=== PATIENT | female | born 1950 | race Caucasian/White ===

== ENCOUNTER 2021-10-13 09:24 | Inpatient (IN) ==
[2021-10-13] MEDS ORDERED: 0.9 % SODIUM CHLORIDE 1,000 ML IV ONE ×2 (09:31→10:35)
--- NOTE | 2021-10-13 09:35 | Emergency Department Note ---
SOB HPI General Chief Complaint: Shortness of Breath/Dyspnea Stated Complaint: SOB Time Seen by Provider: 10/13/21 09:30 Mode of arrival: ambulatory History of Present Illness HPI Narrative: Patient is a 71-year-old lady who arrives emergency state. Patient has been feeling short of breath for the past several days. This was gradual in onset has been progressively worsening. She has had a cough as well as a headache associated with her symptoms. She denies any fever or chills. Family members noticed that she was looking more short of breath this morning so they called 911. Paramedics arrived to find the patient in significant respiratory distress with oxygen saturation in the 70s on room air provide CPAP the patient's work of breathing and oxygen saturation greatly improved. Related Data Home Medications Medication Instructions Recorded Confirmed diazepam 5 mg tablet 5 mg PO BID 10/13/21 10/13/21 mirabegron 50 mg tablet,extended 50 mg PO QDAY 10/13/21 10/13/21 release 24 hr (Myrbetriq) olanzapine 5 mg tablet 5 mg PO QHS 10/13/21 10/13/21 quetiapine 300 mg tablet 300 mg PO QHS 10/13/21 10/13/21 sertraline 100 mg tablet 150 mg PO QDAY 10/13/21 10/13/21 Previous Rx's Medication Instructions Recorded amlodipine 5 mg tablet 5 mg PO QDAY #90 tab 07/27/21 celecoxib 100 mg capsule (Celebrex) 100 mg PO BID #180 cap 09/24/21 lamotrigine 100 mg tablet 200 mg PO QHS #180 tab 09/24/21 buprenorphine HCl 8 mg sublingual 8 mg SUBLINGUAL BID #60 tab 10/09/21 tablet Allergies Allergy/AdvReac Type Severity Reaction Status Date / Time albuterol Allergy Severe Swelling Verified 09/28/21 13:24 Penicillins Allergy Severe Vomiting, Verified 09/28/21 13:24 swelling codeine Allergy Intermediate Itching Verified 09/28/21 13:24 ibuprofen [From Motrin] Allergy Intermediate relaxes Verified 09/28/21 13:24 bladder (incontinence) Review of Systems ROS ROS Narrative: Narrative: Limitations: ROS unobtainable due to patients medical condition (Medical urgency) [facility] Narrative Patient History Narrative: Narrative: Medical/Surgical/Family History All Active Problems (Updated 10/13/21 @ 11:34 by Gilmar Montoya DO) Franco catheter problem (Acute) COVID-19 (Acute) Acute hypoxemic respiratory failure (Acute) Dysuria (Acute) Urinary frequency (Acute) Opioid dependence, in remission (Chronic) Encounter for monitoring of patient compliance in drug treatment program (Chronic) Fibromyalgia (Acute) COPD (chronic obstructive pulmonary disease) (Acute) Anxiety (Acute) Depression (Acute) High blood pressure (Acute) Arthritis (Acute) Migraines (Acute) Osteoporosis (Acute) GERD (gastroesophageal reflux disease) (Acute) Dementia (Acute ~2013) Tourettes disease (Acute 1950) Asthma (Chronic) Muscle pain (Chronic) Joint pain (Chronic) Kidney stones (Chronic) Stomach ulcer (Chronic) Status post surgery (Chronic) History of surgery (Chronic) History of colonoscopy (Chronic) Chronic suprapubic catheter (Acute) Anemia (Acute) Fatigue (Acute) Chest pain at rest (Acute) Pressure ulcer (Acute) Pressure ulcer of right hip (Acute) Worsening headaches (Acute) Nail thickening (Acute) Lymphadenopathy, cervical (Acute) Thoracic back pain (Acute) Urinary tract infection with hematuria (Acute) Urinary catheter in place (Acute) Medical History Anxiety Arthritis Asthma Brain aneurysm (~2010) COPD (chronic obstructive pulmonary disease) Dementia (~2013) Depression Fibromyalgia GERD (gastroesophageal reflux disease) Gout High blood pressure History of alcohol abuse (~1979) History of kidney stones Joint pain Kidney stones Migraines Muscle pain Open wound of right thigh Osteoporosis Pressure ulcer of right hip Stomach ulcer Tourettes disease (1950) Surgical History History of colonoscopy History of surgery preventive aneurysm surgery Status post surgery pubic catheter placement Family History Mother Family history of lung cancer Family history of arthritis Family history of high blood pressure Father Family history of arthritis Family history of high blood pressure Family history of heart attack Family/Other Family history of migraine headaches "all" Social History Smoking Status: Former smoker Alcohol Intake Frequency: former alcohol drinker Substance Use: former substance user Exam Narrative Narrative: I reviewed the vital signs. Gen -patient is awake and alert and in no acute distress. She appears older than her stated age. HEENT -head is atraumatic. There is no conjunctival pallor or scleral icterus. Mucous membranes are dry CV -S1-S2 regular rate and rhythm. Peripheral pulses are palpable. There is no JVD. Resp -breathing is slightly labored with tachypnea and some conversational dyspnea while on CPAP. Lungs have coarse rhonchi bilaterally. There is no cyanosis. GI - Abdomen is soft and nontender to palpation. There is no guarding or rebound tenderness. Derm -skin is warm and dry. There is no visible rash. MSK -present extremities are atraumatic. Psych -patient has appropriate affect. The patient does not appear internally stimulated. Neuro -patient provides brief but generally appropriate answers to questions. Patient moves all present extremities equally. Course Vital Signs Vital signs: Vital Signs Pulse Rate 97 H 10/13/21 09:34 Respiratory Rate 24 H 10/13/21 09:34 Blood Pressure 133/97 10/13/21 09:34 Pulse Oximetry (%) 98 10/13/21 09:34 Pulse Rate 83 10/13/21 10:50 Respiratory Rate 28 H 10/13/21 10:50 Blood Pressure 118/78 10/13/21 10:50 Pulse Oximetry (%) 98 10/13/21 10:50 [facility] MDM Narrative Medical decision making narrative: Patient presents significantly ill with tachypnea and increased work of breath ing despite CPAP. Rapid COVID-19 test is positive and chest x-ray appears consistent with Covid pneumonia. Given this I do not think she would benefit from antibiotic treatment. We initiated treatment with IV Decadron. I discussed her critical illness and poor prognosis with her brother Klaus at [phone]. He is her medical power of state's attorney. He says she would not want CPR if she were to experience a cardiac arrest. He is uncertain if she would want intubation if her respiratory status continues to worsen. He will discuss this with other family members to try to decide what the patient would want. For the time being intubation will remain a treatment option. After discussing the situation with the patient's daughter, patient's brother called back and told me that he does not think the patient would want to be intubated at this time. I discussed the patient's history examination and diagnostic findings with Dr. Deleon, who agrees with the plan of care and accepts admission. Critical care time I provided 36 minutes of critical care time. This was in addition to any separately billable procedures. The patient was given supplemental oxygen to treat her hypoxemic respiratory failure. She was given dexamethasone to treat the causative COVID-19 pneumonia. I discussed her wishes for aggressive medical interventions with family members as she is unable to do so at this time given her dementia significantly increased work of breathing. The patient was closely monitored for response to treatment and stability of vital signs throughout their emergency department stay. Lab Data Result diagrams: 10/13/21 09:32 10/13/21 09:32 Labs: Lab Results 10/13/21 10/13/21 10/13/21 Range/Units 09:32 09:32 09:32 WBC 11.2 H (4.5-11.0) K/mcL RBC 4.51 (3.59-5.38) M/mcL Hgb 12.1 (11.2-15.7) g/dL Hct 37.6 (34.1-44.9) % MCV 83.4 (80.0-100.0) fL MCH 26.8 (26.0-34.0) pg MCHC 32.2 (31.0-36.0) g/dL RDW 16.5 H (11.5-14.5) % Plt Count 239 (140-440) K/mcL MPV 9.9 (7.4-10.4) fL Neut % (Auto) 76.0 (38.0-78.0) % Lymph % (Auto) 10.7 L (15.5-49.0) % [place] % (Auto) 13.1 H (1.0-12.0) % Eos % (Auto) 0 (0.0-7.0) % Baso % (Auto) 0.2 (0.0-2.0) % Lymph # (Auto) 1.20 L (1.50-4.80) K/mcL [place] # (Auto) 1.47 H (0.10-0.90) K/mcL Eos # (Auto) 0 (0.00-0.70) K/mcL Baso # (Auto) 0.02 (0.00-0.30) K/mcL Absolute Neutrophils 8.50 H (1.80-8.00) K/mcL Sodium 141 (133-145) mmol/L Potassium 3.5 (3.3-5.1) mmol/L Chloride 104 (96-108) mmol/L Carbon Dioxide 20 L (22-30) mmol/L Anion Gap 17.0 H (8.0-16.0) BUN 26 H (8-23) mg/dL Creatinine 1.1 (0.6-1.1) mg/dL GFR Calculation 51 Glucose 104 (70-105) mg/dL Calcium 8.1 L (8.6-10.4) mg/dL Total Bilirubin 0.3 (0.1-1.0) mg/dL AST 65 H (<32) U/L ALT 19 (<40) U/L Alkaline Phosphatase 187 H (39-117) U/L Troponin T < 0.01 (<0.03) ng/mL NT-Pro-B Natriuret Pep 1452.0 H (<125.0) pg/mL Total Protein 6.6 (5.9-8.4) gm/dL Albumin 3.0 L (3.2-5.2) gm/dL Globulin 3.6 (2.2-3.7) gm/dL Albumin/Globulin Ratio 0.8 L (1.0-2.3) ED POC Tests ED POC Tests: LENKA - Influenza A Negative LENKA - Influenza B Negative LENKA - SARS Antigen Positive Discharge Plan Patient/Caregiver Discharge Instructions Pt seen by JOURNALISM PROFESSOR/PA only: No Clinical Impression: COVID-19, Acute hypoxemic respiratory failure Patient Disposition: Xfer As Inpt ([facility]) Condition: Critical Follow up with: Antonia Velazquez ARNP [Primary Care Provider] - Prescriptions: No Action amlodipine 5 mg tablet 5 mg PO QDAY Qty: 90 1RF lamotrigine 100 mg tablet 200 mg PO QHS Qty: 180 1RF celecoxib [Celebrex] 100 mg capsule 100 mg PO BID Qty: 180 1RF buprenorphine HCl 8 mg tablet, sublingual 8 mg SUBLINGUAL BID Qty: 60 0RF quetiapine 300 mg tablet 300 mg PO QHS 0RF Rx Instructions: TAKE 1 TABLET BY MOUTH ONCE DAILY AT BEDTIME sertraline 100 mg tablet 150 mg PO QDAY 0RF Rx Instructions: TAKE 1 & 1/2 (ONE & ONE-HALF) TABLETS BY MOUTH ONCE DAILY olanzapine 5 mg tablet 5 mg PO QHS 0RF Rx Instructions: TAKE 1 TABLET BY MOUTH ONCE DAILY AT BEDTIME diazepam 5 mg tablet 5 mg PO BID 0RF Rx Instructions: Takes 2 in the AM and 1 at HS Myrbetriq 50 mg tablet extended release 24 hr 50 mg PO QDAY 0RF Rx Instructions: Take 1 tablet by mouth once daily
--- NOTE | 2021-10-13 09:52 | XRay Report ---
INDICATION: dyspnea TECHNIQUE: AP portable semiupright chest x-ray COMPARISON: Previous chest x-rays dated 01/09/2021, 07/16/2020 FINDINGS: Lungs:Bilateral pulmonary parenchymal infiltrates, right worse than left. No parenchymal consolidation or mass. Findings are new since previous examination. Findings are most consistent with pneumonia. Covid pneumonia is not excluded appropriate clinical circumstances. Follow-up radiographs recommended. Heart, vascular:No significant cardiomegaly. Pulmonary vascularity is normal. No pulmonary edema or pulmonary congestion Mediastinum, claudia:No mediastinal widening. No hilar mass Pleura:No pleural fluid. No pleural-based mass or calcification Skeletal:Negative. IMPRESSION: 1. Pulmonary parenchymal infiltrates, right worse than left 2. Findings consistent with pneumonia. Follow-up radiographs recommended Interpreted and Authenticated by: Jasen Scott 10/13/21
[2021-10-13] MEDS ORDERED: DEXAMETHASONE 10 MG/ML VIAL IV ONE (10:07)
[2021-10-13 10:36] LABS: Basophils # (Auto) 0.02 K/mcL (0.00-0.30); Basophils % (Auto) 0.2 % (0.0-2.0); Eosinophils # (Auto) 0 K/mcL (0.00-0.70); Eosinophils % (Auto) 0 % (0.0-7.0); Hematocrit 37.6 % (34.1-44.9); Hemoglobin 12.1 g/dL (11.2-15.7); Lymphocytes % (Auto) 10.7 % (15.5-49.0); Mean Cell Volume 83.4 fL (80.0-100.0); Mean Corpuscular HGB Conc 32.2 g/dL (31.0-36.0); Mean Platelet Volume 9.9 fL (7.4-10.4); Monocytes # (Auto) 1.47 K/mcL (0.10-0.90); Monocytes % (Auto) 13.1 % (1.0-12.0); Platelet Count 239 K/mcL (140-440); RBC 4.51 M/mcL (3.59-5.38); Red Cell Distribution Width 16.5 % (11.5-14.5); WBC 11.2 K/mcL (4.5-11.0)
[2021-10-13 11:01] LABS: ALT/SGPT 19 U/L (<40); AST/SGOT 65 U/L (<32); Albumin/Globulin Ratio 0.8 (1.0-2.3); Alkaline Phosphatase 187 U/L (39-117); Bilirubin,Total 0.3 mg/dL (0.1-1.0); Blood Urea Nitrogen 26 mg/dL (8-23); Calcium 8.1 mg/dL (8.6-10.4); Carbon Dioxide 20 mmol/L (22-30); Chloride 104 mmol/L (96-108); Globulin 3.6 gm/dL (2.2-3.7); Glomerular Filtration Rate 51; Glucose 104 mg/dL (70-105)
[2021-10-13] MEDS ORDERED: SENNOSIDES 1 TABLET PO PRN (11:53)
[2021-10-13] MEDS ORDERED: ACETAMINOPHEN 325 MG TABLET PO PRN (11:53)
[2021-10-13] MEDS ORDERED: LACTULOSE 20 GM/30 ML ORAL.SOL PO PRN (11:53)
[2021-10-13] MEDS ORDERED: ONDANSETRON 4 MG/2 ML VIAL IV PRN (11:53)
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
[2021-10-13] MEDS ORDERED: ACETAMINOPHEN 500 MG TABLET PO ONE (12:11)
--- NOTE | 2021-10-13 12:53 | EKG ---
[facility] Test Date: 2021-10-13 Pat Name: Catherine Rojas Department: ED Room: Gender: Female [place] [place]: SB : 1950 Requested By: Gilmar Montoya Order Number: [id number] Reading MD: Janelle Nicole D.O. Measurements Intervals [place] Rate: 90 P: 63 MO: 109 QRS: 9 QRSD: 90 T: 56 QT: 356 QTc: 436 Interpretive Statements Sinus rhythm Short MO interval Electronically Signed On 10-13-2021 12:52:39 PST by Janelle Nicole D.O. /store/M0/[id number]
[2021-10-13] MEDS ORDERED: ACETAMINOPHEN 1,000 MG/100 ML BAG IV ONE (13:25)
[2021-10-13] MEDS: 0.9 % SODIUM CHLORIDE 10 ML SYRINGE IV SCH ×2 (14:28→21:06)
[2021-10-13] MEDS: LEVALBUTEROL 1.25 MG/3 ML AMPUL.NEB NEB SCH ×2 (14:41→19:41)
[2021-10-13] MEDS ORDERED: REMDESIVIR 200 MG in 0.9 % SODIUM CHLORIDE 250 ML IV ONE (15:00)
[2021-10-13 16:38] LABS: ABG Methemoglobin 0.3 % (0.4-1.5); Total Hemoglobin 10.5 gm/Dl (12.0-15.0); VBG Base Excess -3 (-2-3); VBG HCO3 22.6 mmol/L (24.0-28.0); VBG Oxygen Saturation 94.1 % (40.0-70.0); VBG PCO2 43.9 mmHg (41.0-51.0); VBG PH 7.33 U (7.32-7.42); VBG PO2 161.4 mmHg (25.0-40.0); VBG Total CO2 23.9 mmol/L (25.0-29.0)
[2021-10-13 17:15] LABS: ALT/SGPT 18 U/L (<40); AST/SGOT 63 U/L (<32); Albumin 2.5 gm/dL (3.2-5.2); Albumin/Globulin Ratio 0.8 (1.0-2.3); Alkaline Phosphatase 156 U/L (39-117); Bilirubin,Direct 0.2 mg/dL (<0.3); Bilirubin,Total 0.3 mg/dL (0.1-1.0); Blood Urea Nitrogen 24 mg/dL (8-23); Calcium 7.2 mg/dL (8.6-10.4); Carbon Dioxide 20 mmol/L (22-30); Chloride 108 mmol/L (96-108); Globulin 3.2 gm/dL (2.2-3.7); Glomerular Filtration Rate 57; Glucose 129 mg/dL (70-105); Lactate Dehydrogenase 361 U/L (135-225); Phosphorous 4.3 mg/dL (2.5-4.5); Triglycerides 117 mg/dL (<150); Uric Acid 5.8 mg/dL (2.5-8.0)
[2021-10-13] MEDS ORDERED: QUEtiapine 100 MG TABLET PO SCH (21:00)
[2021-10-13] MEDS ORDERED: OLANZapine 5 MG TABLET PO SCH (21:00)
[2021-10-13] MEDS: lamoTRIgine 100 MG TABLET PO SCH (21:06)
[2021-10-13] MEDS: BUPRENORPHINE HCL 2 MG TAB.SUBL SL SCH (21:06)
[2021-10-13] MEDS: DOCUSATE SODIUM 100 MG CAPSULE PO SCH (21:06)
[2021-10-13] MEDS: DIAZEPAM 5 MG TABLET PO SCH (21:06)
[2021-10-14] MEDS: LEVALBUTEROL 1.25 MG/3 ML AMPUL.NEB NEB SCH ×4 (00:54→19:14)
[2021-10-14] MEDS: 0.9 % SODIUM CHLORIDE 10 ML SYRINGE IV SCH ×3 (05:30→20:19)
[2021-10-14 06:53] LABS: Hematocrit 35.9 % (34.1-44.9); Mean Corpuscular HGB Conc 30.6 g/dL (31.0-36.0); Mean Platelet Volume 10.4 fL (7.4-10.4); Platelet Count 242 K/mcL (140-440); RBC 4.08 M/mcL (3.59-5.38); WBC 15.7 K/mcL (4.5-11.0)
[2021-10-14 07:17] LABS: ALT/SGPT 17 U/L (<40); AST/SGOT 62 U/L (<32); Albumin 2.3 gm/dL (3.2-5.2); Albumin/Globulin Ratio 0.7 (1.0-2.3); Alkaline Phosphatase 140 U/L (39-117); Bilirubin,Direct < 0.2 mg/dL (0-0.3); Bilirubin,Total 0.3 mg/dL (0.1-1.0); Blood Urea Nitrogen 23 mg/dL (8-23); Calcium 7.9 mg/dL (8.6-10.4); Carbon Dioxide 20 mmol/L (22-30); Chloride 112 mmol/L (96-108); Globulin 3.4 gm/dL (2.2-3.7); Glomerular Filtration Rate 74; Glucose 110 mg/dL (70-105); Lactate Dehydrogenase 380 U/L (135-225); Phosphorous 3.1 mg/dL (2.5-4.5); Triglycerides 95 mg/dL (<150); Uric Acid 5.7 mg/dL (2.5-8.0)
[2021-10-14 08:07] LABS: Anisocytosis 2+ (None Seen); Band Neutrophils % 10 % (0-10); Lymphocytes % 4 % (15-49); Monocytes % (Manual) 7 % (1-12); Ovalocytes OCC (None Seen); Platelet Estimate NORMAL (Normal); RBC Morphology ABNORMAL (Normal); Reactive Lymphocytes 1 % (0-2); Segmented Neutrophils % 78 % (38-78)
[2021-10-14] MEDS: DOCUSATE SODIUM 100 MG CAPSULE PO SCH ×2 (09:06→20:24)
[2021-10-14] MEDS: ENOXAPARIN 40 MG/0.4 ML SYRINGE SQ SCH (09:13)
[2021-10-14] MEDS: DEXAMETHASONE 10 MG/ML VIAL IV SCH (09:13)
[2021-10-14] MEDS ORDERED: DIAZEPAM 2 MG TABLET PO PRN (11:15)
[2021-10-14] MEDS: DIAZEPAM 5 MG TABLET PO SCH (11:27)
[2021-10-14] MEDS: BUPRENORPHINE HCL 2 MG TAB.SUBL SL SCH ×3 (12:08→20:23)
[2021-10-14] MEDS: SERTRALINE 100 MG TABLET PO SCH ×2 (12:08→12:43)
[2021-10-14] MEDS: CEFEPIME 2 GM VIAL IV SCH ×2 (12:09→20:23)
[2021-10-14] MEDS: REMDESIVIR 100 MG in 0.9 % SODIUM CHLORIDE 250 ML IV SCH (12:09)
[2021-10-14 13:28] LABS: Appearance,Urine Cloudy (Clear); Bacteria,Urine MANY /hpf (0); Bilirubin,Urine Small mg/dL (Negative); Color,Urine Amber; Culture Indicated,Urine yes; Glucose,Urine (UA) Negative (Negative); Ketones,Urine 40 mg/dL mg/dL (Negative); Leukocyte Esterase,Urine Large /uL (Negative); Mucus,Urine FEW /hpf; Nitrate,Urine Positive (Negative); PH,Urine 7.5 (5.0-9.0); Protein,Urine >=300 mg/dL mg/dL (Negative); Urine Blood Large ery/mcL (Negative); Urine RBC > 182 /hpf (0-1); Urine Squamous Epithelial Cell 0 /hpf (0-4); Urine Transitional Epi Cells 6 /hpf (0-2); Urine WBC > 182 /hpf (0-4); Urobilinogen,Urine Normal
[2021-10-14] MEDS: DEXTROSE 5% IN WATER 1,000 ML IV SCH (13:51)
--- NOTE | 2021-10-14 15:04 | Internal Med Progress Note ---
SUBJECTIVE Subjective Patient information: Note initiated : 10/14/21 at 2:57 pm Service Date, if different from initiated Date: [] Patient: Catherine Rojas 71 y/o F admitted on 10/13/21 for Shortness of breath. Chief Complaint: [] Principal diagnosis: Severe COVID Interval history: Ms. Rojas is a 71 year old female with a history of COPD, chronic hypoxia with a 2 L/min oxygen requirement, suprapubic Franco catheter, dementia who presented to the emergency department for shortness of breath and acute on chronic hypoxia. The patient was diagnosed with Covid pneumonia in the emergency department.She was started on BiPAP with additional oxygen supplementation and given a dose of Decadron IV. The emergency department provider discussed goals of care with family, family decided on a CODE STATUS of DNR/DNI. Hospital medicine was asked to admit the patient for further management. Patient is unable to provide a history secondary to dementia. In the emergency department, the patient to be breathing comfortably on BiPAP. Review of systems: Unable to obtain due to dementia Physical exam Head: Atraumatic, normal inspection. Eyes: normal appearance, no scleral icterus. Neck: full ROM Respiratory: On BiPAP, respiratory rate in the mid to upper 20s. Cardiovascular: normal rate and rhythm, S1, S2. GI/Abdominal: soft, nontender, no guarding. : Suprapubic catheter present Extremities: full range of motion, nontender. Neurological: CN II-XII intact, intact motor, intact sensation. Psychiatric: normal mood, impaired cognition Skin: warm, normal color Constitutional Vitals: Vital Signs Temp Pulse Resp BP Pulse Ox 99.6 F H 87 22 117/79 92 10/14/21 12:01 10/14/21 13:22 10/14/21 14:03 10/14/21 14:01 10/14/21 14:03 Period Temp Pulse Resp BP Sys/Galarza Pulse Ox Last 24 Hr 97.9 F-100.6 F 66-114 15-34 88-124/64-79 89-96 Intake and Output 10/14/21 10/14/21 10/14/21 05:59 13:59 21:59 Intake Total 460 250 Output Total 300 400 Balance 160 -150 Intake & Output: Intake & Output 10/14/21 10/14/21 10/14/21 05:59 13:59 21:59 Intake Total 460 250 Output Total 300 400 Balance 160 -150 Intake: IV 250 Veklury 100 mg In Sodium 250 Chloride 0.9% 250 ml @ 500 mls/ hr IV Q24H [facility] Rx#:[id number] Oral 460 Output: Urine Catheter Amount 300 400 Other: Urine Appearance Cloudy Mucous Threads Sediment Suprapubic Cloudy Urine Color Dark Yellow Dark Yellow Suprapubic Dark Yellow Urine Odor Strong Foul Suprapubic Foul OBJ DATA Labs CBC & Chem 7: 10/14/21 05:28 10/14/21 05:27 Labs: Abnormal Lab Results 10/14/21 10/14/21 10/14/21 12:40 09:16 09:16 WBC Hgb MCHC RDW Lymph % (Auto) [place] % (Auto) Lymph # (Auto) [place] # (Auto) Lymphocytes % Absolute Neutrophils RBC Morphology Anisocytosis Ovalocytes D-Dimer ABG Methemoglobin VBG pO2 VBG HCO3 VBG Total CO2 VBG O2 Saturation VBG Base Excess Carboxyhemoglobin Total Hemoglobin Sodium Chloride Carbon Dioxide Anion Gap BUN Glucose Calcium GGT AST Alkaline Phosphatase Lactate Dehydrogenase C-Reactive Protein 29.70 H NT-Pro-B Natriuret Pep Total Protein Albumin Albumin/Globulin Ratio Procalcitonin 1.07 H Urine Appearance Cloudy A Urine Protein >=300 mg/dl A Urine Ketones 40 mg/dl A Urine Occult Blood Large A Urine Nitrate Positive A Urine Bilirubin Small A Ur Leukocyte Esterase Large A Urine RBC > 182 H Urine WBC > 182 H Ur Transition Epith Cell 6 H Urine Bacteria Many A Urine Mucus Few A 10/14/21 10/14/21 10/13/21 05:28 05:27 16:07 WBC 15.7 H Hgb 11.0 L MCHC 30.6 L RDW 17.0 H Lymph % (Auto) [place] % (Auto) Lymph # (Auto) [place] # (Auto) Lymphocytes % 4 L Absolute Neutrophils RBC Morphology Abnormal A Anisocytosis 2+ A Ovalocytes Occ A D-Dimer ABG Methemoglobin 0.3 L VBG pO2 161.4 H VBG HCO3 22.6 L VBG Total CO2 23.9 L VBG O2 Saturation 94.1 H VBG Base Excess -3 L Carboxyhemoglobin 4.7 H Total Hemoglobin 10.5 L Sodium 147 H Chloride 112 H Carbon Dioxide 20 L Anion Gap BUN Glucose 110 H Calcium 7.9 L GGT 58 H AST 62 H Alkaline Phosphatase 140 H Lactate Dehydrogenase 380 H C-Reactive Protein NT-Pro-B Natriuret Pep Total Protein 5.7 L Albumin 2.3 L Albumin/Globulin Ratio 0.7 L Procalcitonin Urine Appearance Urine Protein Urine Ketones Urine Occult Blood Urine Nitrate Urine Bilirubin Ur Leukocyte Esterase Urine RBC Urine WBC Ur Transition Epith Cell Urine Bacteria Urine Mucus 10/13/21 10/13/21 10/13/21 09:32 09:32 09:32 WBC Hgb MCHC RDW Lymph % (Auto) [place] % (Auto) Lymph # (Auto) [place] # (Auto) Lymphocytes % Absolute Neutrophils RBC Morphology Anisocytosis Ovalocytes D-Dimer 1.48 H ABG Methemoglobin VBG pO2 VBG HCO3 VBG Total CO2 VBG O2 Saturation VBG Base Excess Carboxyhemoglobin Total Hemoglobin Sodium Chloride Carbon Dioxide 20 L Anion Gap BUN 24 H Glucose 129 H Calcium 7.2 L GGT 56 H AST 63 H Alkaline Phosphatase 156 H Lactate Dehydrogenase 361 H C-Reactive Protein 23.00 H NT-Pro-B Natriuret Pep Total Protein 5.7 L Albumin 2.5 L Albumin/Globulin Ratio 0.8 L Procalcitonin Urine Appearance Urine Protein Urine Ketones Urine Occult Blood Urine Nitrate Urine Bilirubin Ur Leukocyte Esterase Urine RBC Urine WBC Ur Transition Epith Cell Urine Bacteria Urine Mucus 10/13/21 10/13/21 09:32 09:32 WBC 11.2 H Hgb MCHC RDW 16.5 H Lymph % (Auto) 10.7 L [place] % (Auto) 13.1 H Lymph # (Auto) 1.20 L [place] # (Auto) 1.47 H Lymphocytes % Absolute Neutrophils 8.50 H RBC Morphology Anisocytosis Ovalocytes D-Dimer ABG Methemoglobin VBG pO2 VBG HCO3 VBG Total CO2 VBG O2 Saturation VBG Base Excess Carboxyhemoglobin Total Hemoglobin Sodium Chloride Carbon Dioxide 20 L Anion Gap 17.0 H BUN 26 H Glucose Calcium 8.1 L GGT AST 65 H Alkaline Phosphatase 187 H Lactate Dehydrogenase C-Reactive Protein NT-Pro-B Natriuret Pep 1452.0 H Total Protein Albumin 3.0 L Albumin/Globulin Ratio 0.8 L Procalcitonin Urine Appearance Urine Protein Urine Ketones Urine Occult Blood Urine Nitrate Urine Bilirubin Ur Leukocyte Esterase Urine RBC Urine WBC Ur Transition Epith Cell Urine Bacteria Urine Mucus Meds: Medications Acetaminophen (Acetaminophen 325 Mg Tablet) 650 mg PO Q6HP PRN; Protocol PRN Reason: Per Pain Protocol/Fever > 101 Buprenorphine HCl (Buprenorphine Hcl 2 Mg Tab.Subl) 8 mg SL BID [facility] Last Admin: 10/14/21 12:43 Dose: Not Given Documented by: Cefepime HCl (Cefepime 2 Gm Vial) 2 gm IV Q12H [facility]; Protocol Last Admin: 10/14/21 12:09 Dose: 2 gm Documented by: Dexamethasone (Dexamethasone 10 Mg/Ml Vial) 6 mg IV DAILY [facility] Stop: 10/23/21 09:01 Last Admin: 10/14/21 09:13 Dose: 6 mg Documented by: Diazepam (Diazepam 2 Mg Tablet) 2 mg PO BIDP PRN PRN Reason: Anxiety Docusate Sodium (Docusate Sodium 100 Mg Capsule) 100 mg PO BID [facility] Last Admin: 10/14/21 09:06 Dose: Not Given Documented by: Enoxaparin Sodium (Enoxaparin 40 Mg/0.4 Ml Syringe) 40 mg SQ DAILY [facility] Last Admin: 10/14/21 09:13 Dose: 40 mg Documented by: REMDESIVIR 100 mg/ Sodium (Chloride) 250 mls @ 500 mls/hr IV Q24H [facility] Stop: 10/17/21 12:29 Last Infusion: 10/14/21 12:57 Dose: Infused Documented by: Dextrose (Dextrose 5% In Water) 1,000 mls @ 100 mls/hr IV .Q10H [facility] Last Admin: 10/14/21 13:51 Dose: 100 mls/hr Documented by: Lactulose (Lactulose 20 Gm/30 Ml Oral.Opal) 10 gm PO DAILYP PRN PRN Reason: Constipation Lamotrigine (Lamotrigine 100 Mg Tablet) 200 mg PO QHS [facility] Last Admin: 10/13/21 21:06 Dose: 200 mg Documented by: Levalbuterol HCl (Levalbuterol 1.25 Mg/3 Ml Ampul.Neb) 1.25 mg NEB Q6HRT [facility] Last Admin: 10/14/21 13:22 Dose: 1.25 mg Documented by: Olanzapine (Olanzapine 5 Mg Tablet) 5 mg PO HSP PRN PRN Reason: Agitation Ondansetron HCl (Ondansetron 4 Mg/2 Ml Vial) 4 mg IV Q4HP PRN; Protocol PRN Reason: Nausea And Vomiting Mirabegron [ Myrbetriq] 50 Mg Er Tablet 1 dose PO QDAY [facility] Last Admin: 10/14/21 12:01 Dose: Not Given Documented by: Quetiapine Fumarate (Quetiapine 100 Mg Tablet) 100 mg PO QHS [facility] Senna (Sennosides 1 Tablet) 2 tab PO HSP PRN PRN Reason: Constipation Sertraline HCl (Sertraline 100 Mg Tablet) 150 mg PO QDAY [facility] Last Admin: 10/14/21 12:43 Dose: Not Given Documented by: Sodium Chloride (0.9 % Sodium Chloride 10 Ml Syringe) 10 ml IV Q8 [facility] Last Admin: 10/14/21 13:52 Dose: 10 ml Documented by: ABG Interpretation ABG results: 10/13/21 16:07 ABG Methemoglobin 0.3 L VBG pH 7.33 VBG pCO2 43.9 VBG pO2 161.4 H VBG HCO3 22.6 L VBG Total CO2 23.9 L VBG O2 Saturation 94.1 H VBG Base Excess -3 L A/P Narrative A/P Narrative: Assessment: 71 year old female with a history of COPD, chronic hypoxia with a 2 L/min oxygen requirement, suprapubic Franco catheter, dementia admitted for acute on chronic hypoxia secondary to severe COVID. #Acute on chronic hypoxic respiratory failure #Severe COVID illness #Possible CAP #Elevated procalcitonin #Hypernatremia #Dysphagia #COPD #Essential hypertension #Depression #History of opioid use disorder #Pressure ulcers, present on admission #Suprapubic Franco catheter #Dementia #Guarded prognosis Plan -Dexamethasone and remdesivir. -Oxygen supplementation. -Start empiric Cefepime and Azithromycin. -Urinalysis w/ reflex. -D5 IV for hypernatremia. -Monitor sodium, daily CBC and chemistry panel. -Scheduled Xopenex for now. -Modified home psychotropic medications at lower doses or prn. -Delirium bundle. -PT consult -Speech consult. -NPO except meds. -DVT prophylaxis: Lovenox -CODE STATUS: DNR/DNI -Disposition: TBD Time Spent With Patient Time: Total time spent is greater than 50% in coordination of care (as documented) at patient's floor/unit and/or counseling patient: QUALITY VTE Deep Vein Thrombosis/Pulmonary Embolism Present on Admission: No
[2021-10-14] MEDS: AZITHROMYCIN 500 MG in DEXTROSE 5% IN WATER 250 ML IV SCH (16:01)
[2021-10-14] MEDS: lamoTRIgine 100 MG TABLET PO SCH (20:23)
[2021-10-14] MEDS ORDERED: QUEtiapine 100 MG TABLET PO SCH (21:00)
[2021-10-14] MEDS ORDERED: OLANZapine 5 MG TABLET PO PRN (21:00)
[2021-10-15] MEDS: DEXTROSE 5% IN WATER 1,000 ML IV SCH ×2 (00:22→10:57)
[2021-10-15] MEDS: LEVALBUTEROL 1.25 MG/3 ML AMPUL.NEB NEB SCH ×3 (00:43→13:10)
[2021-10-15] MEDS: 0.9 % SODIUM CHLORIDE 10 ML SYRINGE IV SCH ×3 (05:58→20:48)
[2021-10-15 07:04] LABS: Hematocrit 31.2 % (34.1-44.9); Hemoglobin 9.8 g/dL (11.2-15.7); Mean Cell Volume 85.5 fL (80.0-100.0); Mean Corpuscular HGB Conc 31.4 g/dL (31.0-36.0); Mean Platelet Volume 10.5 fL (7.4-10.4); Platelet Count 240 K/mcL (140-440); RBC 3.65 M/mcL (3.59-5.38); Red Cell Distribution Width 16.9 % (11.5-14.5); WBC 14.7 K/mcL (4.5-11.0)
[2021-10-15 07:29] LABS: ALT/SGPT 18 U/L (<40); AST/SGOT 57 U/L (<32); Albumin 2.2 gm/dL (3.2-5.2); Albumin/Globulin Ratio 0.8 (1.0-2.3); Alkaline Phosphatase 113 U/L (39-117); Bilirubin,Direct < 0.2 mg/dL (0-0.3); Bilirubin,Total 0.2 mg/dL (0.1-1.0); Blood Urea Nitrogen 25 mg/dL (8-23); Calcium 7.8 mg/dL (8.6-10.4); Carbon Dioxide 24 mmol/L (22-30); Chloride 106 mmol/L (96-108); Globulin 2.9 gm/dL (2.2-3.7); Glomerular Filtration Rate 88; Glucose 249 mg/dL (70-105); Lactate Dehydrogenase 346 U/L (135-225); Triglycerides 88 mg/dL (<150)
[2021-10-15 08:35] LABS: Anisocytosis 1+ (None Seen); Band Neutrophils % 6 % (0-10); Hypochromasia 1+ (None Seen); Lymphocytes % 1 % (15-49); Monocytes % (Manual) 2 % (1-12); Platelet Estimate NORMAL (Normal); RBC Morphology ABNORMAL (Normal); Reactive Lymphocytes 2 % (0-2); Segmented Neutrophils % 89 % (38-78)
[2021-10-15] MEDS ORDERED: VANCOMYCIN PER PHARMACY IV SCH (08:47)
[2021-10-15] MEDS: DEXAMETHASONE 10 MG/ML VIAL IV SCH (09:49)
[2021-10-15] MEDS: CEFEPIME 2 GM VIAL IV SCH ×2 (09:49→20:47)
[2021-10-15] MEDS: ENOXAPARIN 40 MG/0.4 ML SYRINGE SQ SCH (09:49)
[2021-10-15] MEDS: DEXTROSE 5%-1/2NS W/20MEQ KCL 1,000 ML IV SCH ×2 (09:50→21:16)
[2021-10-15] MEDS: VANCOMYCIN 750 MG in 0.9 % SODIUM CHLORIDE 250 ML IV SCH ×2 (09:51→20:48)
[2021-10-15] MEDS: AZITHROMYCIN 500 MG in DEXTROSE 5% IN WATER 250 ML IV SCH (09:51)
[2021-10-15] MEDS: REMDESIVIR 100 MG in 0.9 % SODIUM CHLORIDE 250 ML IV SCH (13:22)
[2021-10-15 13:25] LABS: ABG Methemoglobin 0.3 % (0.4-1.5); Total Hemoglobin 9.5 gm/Dl (12.0-15.0); VBG Base Excess 1 (-2-3); VBG HCO3 25.2 mmol/L (24.0-28.0); VBG Oxygen Saturation 92.7 % (40.0-70.0); VBG PCO2 38.8 mmHg (41.0-51.0); VBG PH 7.43 U (7.32-7.42); VBG PO2 87.3 mmHg (25.0-40.0); VBG Total CO2 26.4 mmol/L (25.0-29.0)
--- NOTE | 2021-10-15 14:43 | Internal Med Progress Note ---
SUBJECTIVE Subjective Patient information: Note initiated : 10/15/21 at 2:37 pm Service Date, if different from initiated Date: [] Patient: Catherine Rojas 71 y/o F admitted on 10/13/21 for Shortness of breath. Chief Complaint: [] Principal diagnosis: Severe COVID Interval history: Ms. Rojas is a 71 year old female with a history of COPD, chronic hypoxia with a 2 L/min oxygen requirement, suprapubic Franco catheter, dementia who presented to the emergency department for shortness of breath and acute on chronic hypoxia. The patient was diagnosed with Covid pneumonia in the emergency department.She was started on BiPAP with additional oxygen supplementation and given a dose of Decadron IV. The emergency department provider discussed goals of care with family, family decided on a CODE STATUS of DNR/DNI. Hospital medicine was asked to admit the patient for further management. Patient is unable to provide a history secondary to encephalopathy and probably dementia. In the emergency department, the patient to be breathing comfortably on BiPAP. 10/14 Very drowsy this morning, discontinued scheduled home valium, decreased Seroquel dose. High risk for aspiration so made NPO status. D5 IV started for hypernatr emia. WBC trending up, procalcitonin elevated. Urinalysis positive however from suprapubic catheter. Started empiric Cefepime and Azithromycin. Goals of care conversation by phone with the patient's brother and power of prosthetic makeup designer Klaus. Discussed poor prognosis in the setting of advanced dementia. Will discuss again soon. 10/15 Drowsy this morning again but not as severe as yesterday. Discontinued Seroquel. Hypernatremia resolved. Speech therapy recommendations pending. 1/2 blood cultures positive for gram positive coccobacillus. Repeated blood cultures, added IV Vancomycin. Transitioned IV fluid to D5 1/2 NS KCL. Overall improved since yesterday. Will await blood cultures results to determine if this is bacteremia or a skin contaminant. Plan to update Klaus later today and discuss goals of care again. Physical exam Head: Atraumatic, normal inspection. Eyes: normal appearance, no scleral icterus. Neck: full ROM Respiratory: On BiPAP, respiratory rate in the mid to upper 20s. Cardiovascular: normal rate and rhythm, S1, S2. GI/Abdominal: soft, nontender, no guarding. : Suprapubic catheter present Extremities: full range of motion, nontender. Neurological: CN II-XII intact, intact motor, intact sensation. Psychiatric: normal mood, impaired cognition Skin: warm, normal color Constitutional Vitals: Vital Signs Temp Pulse Resp BP Pulse Ox 99.6 F H 84 15 89/63 91 10/15/21 12:01 10/15/21 13:18 10/15/21 14:26 10/15/21 14:07 10/15/21 14:26 Period Temp Pulse Resp BP Sys/Galarza Pulse Ox Last 24 Hr 98.2 F-99.7 F 84-98 8-32 73-128/52-79 87-93 Intake and Output 10/15/21 10/15/21 10/15/21 05:59 13:59 21:59 Intake Total 1000 1447 Output Total 450 400 Balance 550 1047 Intake & Output: Intake & Output 10/15/21 10/15/21 10/15/21 05:59 13:59 21:59 Intake Total 1000 1447 Output Total 450 400 Balance 550 1047 Intake: IV 1000 1447 Zithromax 500 mg In Dextrose 5% 250 in Water 250 ml @ 250 mls/hr IV DAILY [facility] Rx#:[id number] Dextrose 5% in Water 1,000 ml @ 1000 947 100 mls/hr IV .Q10H [facility] Rx#: [id number] Vancomycin 750 mg In Sodium 250 Chloride 0.9% 250 ml @ 250 mls/ hr IV Q12H [facility] Rx#:[id number] Oral 0 Output: Urine Catheter Amount 450 400 Other: Urine Appearance Cloudy Clear Sediment Urine Color Dark Yellow Dark Yellow Urine Odor Foul OBJ DATA Labs CBC & Chem 7: 10/15/21 06:05 10/15/21 06:05 Labs: Abnormal Lab Results 10/15/21 10/15/21 10/15/21 12:56 06:05 06:05 WBC Hgb Hct MCHC RDW MPV Lymph % (Auto) [place] % (Auto) Lymph # (Auto) [place] # (Auto) Seg Neutrophils % Lymphocytes % Absolute Neutrophils RBC Morphology Hypochromasia Anisocytosis Ovalocytes D-Dimer ABG Methemoglobin 0.3 L VBG pH 7.43 H VBG pCO2 38.8 L VBG pO2 87.3 H VBG HCO3 VBG Total CO2 VBG O2 Saturation 92.7 H VBG Base Excess Carboxyhemoglobin 4.5 H Total Hemoglobin 9.5 L Sodium Chloride Carbon Dioxide Anion Gap BUN 25 H Glucose 249 H Calcium 7.8 L Phosphorus 2.0 L GGT 46 H AST 57 H Alkaline Phosphatase Lactate Dehydrogenase 346 H C-Reactive Protein 15.90 H NT-Pro-B Natriuret Pep Total Protein 5.1 L Albumin 2.2 L Albumin/Globulin Ratio 0.8 L Procalcitonin Urine Appearance Urine Protein Urine Ketones Urine Occult Blood Urine Nitrate Urine Bilirubin Ur Leukocyte Esterase Urine RBC Urine WBC Ur Transition Epith Cell Urine Bacteria Urine Mucus 10/15/21 10/14/21 10/14/21 06:05 12:40 09:16 WBC 14.7 H Hgb 9.8 L Hct 31.2 L MCHC RDW 16.9 H MPV 10.5 H Lymph % (Auto) [place] % (Auto) Lymph # (Auto) [place] # (Auto) Seg Neutrophils % 89 H Lymphocytes % 1 L Absolute Neutrophils RBC Morphology Abnormal A Hypochromasia 1+ A Anisocytosis 1+ A Ovalocytes D-Dimer ABG Methemoglobin VBG pH VBG pCO2 VBG pO2 VBG HCO3 VBG Total CO2 VBG O2 Saturation VBG Base Excess Carboxyhemoglobin Total Hemoglobin Sodium Chloride Carbon Dioxide Anion Gap BUN Glucose Calcium Phosphorus GGT AST Alkaline Phosphatase Lactate Dehydrogenase C-Reactive Protein NT-Pro-B Natriuret Pep Total Protein Albumin Albumin/Globulin Ratio Procalcitonin 1.07 H Urine Appearance Cloudy A Urine Protein >=300 mg/dl A Urine Ketones 40 mg/dl A Urine Occult Blood Large A Urine Nitrate Positive A Urine Bilirubin Small A Ur Leukocyte Esterase Large A Urine RBC > 182 H Urine WBC > 182 H Ur Transition Epith Cell 6 H Urine Bacteria Many A Urine Mucus Few A 10/14/21 10/14/21 10/14/21 09:16 05:28 05:27 WBC 15.7 H Hgb 11.0 L Hct MCHC 30.6 L RDW 17.0 H MPV Lymph % (Auto) [place] % (Auto) Lymph # (Auto) [place] # (Auto) Seg Neutrophils % Lymphocytes % 4 L Absolute Neutrophils RBC Morphology Abnormal A Hypochromasia Anisocytosis 2+ A Ovalocytes Occ A D-Dimer ABG Methemoglobin VBG pH VBG pCO2 VBG pO2 VBG HCO3 VBG Total CO2 VBG O2 Saturation VBG Base Excess Carboxyhemoglobin Total Hemoglobin Sodium 147 H Chloride 112 H Carbon Dioxide 20 L Anion Gap BUN Glucose 110 H Calcium 7.9 L Phosphorus GGT 58 H AST 62 H Alkaline Phosphatase 140 H Lactate Dehydrogenase 380 H C-Reactive Protein 29.70 H NT-Pro-B Natriuret Pep Total Protein 5.7 L Albumin 2.3 L Albumin/Globulin Ratio 0.7 L Procalcitonin Urine Appearance Urine Protein Urine Ketones Urine Occult Blood Urine Nitrate Urine Bilirubin Ur Leukocyte Esterase Urine RBC Urine WBC Ur Transition Epith Cell Urine Bacteria Urine Mucus 10/13/21 10/13/21 10/13/21 16:07 09:32 09:32 WBC Hgb Hct MCHC RDW MPV Lymph % (Auto) [place] % (Auto) Lymph # (Auto) [place] # (Auto) Seg Neutrophils % Lymphocytes % Absolute Neutrophils RBC Morphology Hypochromasia Anisocytosis Ovalocytes D-Dimer ABG Methemoglobin 0.3 L VBG pH VBG pCO2 VBG pO2 161.4 H VBG HCO3 22.6 L VBG Total CO2 23.9 L VBG O2 Saturation 94.1 H VBG Base Excess -3 L Carboxyhemoglobin 4.7 H Total Hemoglobin 10.5 L Sodium Chloride Carbon Dioxide 20 L Anion Gap BUN 24 H Glucose 129 H Calcium 7.2 L Phosphorus GGT 56 H AST 63 H Alkaline Phosphatase 156 H Lactate Dehydrogenase 361 H C-Reactive Protein 23.00 H NT-Pro-B Natriuret Pep Total Protein 5.7 L Albumin 2.5 L Albumin/Globulin Ratio 0.8 L Procalcitonin Urine Appearance Urine Protein Urine Ketones Urine Occult Blood Urine Nitrate Urine Bilirubin Ur Leukocyte Esterase Urine RBC Urine WBC Ur Transition Epith Cell Urine Bacteria Urine Mucus 10/13/21 10/13/21 10/13/21 09:32 09:32 09:32 WBC 11.2 H Hgb Hct MCHC RDW 16.5 H MPV Lymph % (Auto) 10.7 L [place] % (Auto) 13.1 H Lymph # (Auto) 1.20 L [place] # (Auto) 1.47 H Seg Neutrophils % Lymphocytes % Absolute Neutrophils 8.50 H RBC Morphology Hypochromasia Anisocytosis Ovalocytes D-Dimer 1.48 H ABG Methemoglobin VBG pH VBG pCO2 VBG pO2 VBG HCO3 VBG Total CO2 VBG O2 Saturation VBG Base Excess Carboxyhemoglobin Total Hemoglobin Sodium Chloride Carbon Dioxide 20 L Anion Gap 17.0 H BUN 26 H Glucose Calcium 8.1 L Phosphorus GGT AST 65 H Alkaline Phosphatase 187 H Lactate Dehydrogenase C-Reactive Protein NT-Pro-B Natriuret Pep 1452.0 H Total Protein Albumin 3.0 L Albumin/Globulin Ratio 0.8 L Procalcitonin Urine Appearance Urine Protein Urine Ketones Urine Occult Blood Urine Nitrate Urine Bilirubin Ur Leukocyte Esterase Urine RBC Urine WBC Ur Transition Epith Cell Urine Bacteria Urine Mucus Meds: Medications Acetaminophen (Acetaminophen 325 Mg Tablet) 650 mg PO Q6HP PRN; Protocol PRN Reason: Per Pain Protocol/Fever > 101 Buprenorphine HCl (Buprenorphine Hcl 2 Mg Tab.Subl) 8 mg SL BID [facility] Last Admin: 10/14/21 20:23 Dose: 8 mg Documented by: Cefepime HCl (Cefepime 2 Gm Vial) 2 gm IV Q12H [facility]; Protocol Last Admin: 10/15/21 09:49 Dose: 2 gm Documented by: Dexamethasone (Dexamethasone 10 Mg/Ml Vial) 6 mg IV DAILY [facility] Stop: 10/23/21 09:01 Last Admin: 10/15/21 09:49 Dose: 6 mg Documented by: Diazepam (Diazepam 2 Mg Tablet) 2 mg PO BIDP PRN PRN Reason: Anxiety Docusate Sodium (Docusate Sodium 100 Mg Capsule) 100 mg PO BID [facility] Last Admin: 10/14/21 20:24 Dose: Not Given Documented by: Enoxaparin Sodium (Enoxaparin 40 Mg/0.4 Ml Syringe) 40 mg SQ DAILY [facility] Last Admin: 10/15/21 09:49 Dose: 40 mg Documented by: REMDESIVIR 100 mg/ Sodium (Chloride) 250 mls @ 500 mls/hr IV Q24H [facility] Stop: 10/17/21 12:29 Last Admin: 10/15/21 13:22 Dose: 500 mls/hr Documented by: Azithromycin 500 mg/ Dextrose 250 mls @ 250 mls/hr IV DAILY [facility]; Protocol Stop: 10/16/21 09:59 Last Infusion: 10/15/21 10:51 Dose: Infused Documented by: Vancomycin HCl 750 mg/ Sodium (Chloride) 250 mls @ 250 mls/hr IV Q12H [facility] Last Infusion: 10/15/21 10:51 Dose: Infused Documented by: Potassium Chloride/Dextrose/Sod Cl (Dextrose 5%-1/2ns W/20meq Kcl) 1,000 mls @ 75 mls/hr IV .[id number] [facility] Last Admin: 10/15/21 09:50 Dose: 75 mls/hr Documented by: Lactulose (Lactulose 20 Gm/30 Ml Oral.Opal) 10 gm PO DAILYP PRN PRN Reason: Constipation Lamotrigine (Lamotrigine 100 Mg Tablet) 200 mg PO QHS [facility] Last Admin: 10/14/21 20:23 Dose: 200 mg Documented by: Levalbuterol HCl (Levalbuterol 1.25 Mg/3 Ml Ampul.Neb) 1.25 mg NEB Q6HRT [facility] Last Admin: 10/15/21 13:10 Dose: 1.25 mg Documented by: Olanzapine (Olanzapine 5 Mg Tablet) 5 mg PO HSP PRN PRN Reason: Agitation Ondansetron HCl (Ondansetron 4 Mg/2 Ml Vial) 4 mg IV Q4HP PRN; Protocol PRN Reason: Nausea And Vomiting Mirabegron [ Myrbetriq] 50 Mg Er Tablet 1 dose PO QDAY [facility] Last Admin: 10/15/21 10:58 Dose: Not Given Documented by: Senna (Sennosides 1 Tablet) 2 tab PO HSP PRN PRN Reason: Constipation Sertraline HCl (Sertraline 100 Mg Tablet) 150 mg PO QDAY [facility] Last Admin: 10/14/21 12:43 Dose: Not Given Documented by: Sodium Chloride (0.9 % Sodium Chloride 10 Ml Syringe) 10 ml IV Q8 [facility] Last Admin: 10/15/21 05:58 Dose: Not Given Documented by: Vancomycin HCl (Vancomycin Per Pharmacy) 1 order IV UD [facility]; Protocol ABG Interpretation ABG results: 10/13/21 10/15/21 16:07 12:56 ABG Methemoglobin 0.3 L 0.3 L VBG pH 7.33 7.43 H VBG pCO2 43.9 38.8 L VBG pO2 161.4 H 87.3 H VBG HCO3 22.6 L 25.2 VBG Total CO2 23.9 L 26.4 VBG O2 Saturation 94.1 H 92.7 H VBG Base Excess -3 L 1 A/P Narrative A/P Narrative: Assessment: 71 year old female with a history of COPD, chronic hypoxia with a 2 L/min oxygen requirement, suprapubic Franco catheter, dementia admitted for acute on chronic hypoxia secondary to severe COVID. #Acute on chronic hypoxic respiratory failure #Severe COVID illness #Possible CAP #Possible UTI (CAUTI) #Gram positive coccobacillus blood culture #Dysphagia #COPD #Essential hypertension #Depression #History of opioid use disorder #Pressure ulcers, present on admission #Suprapubic Franco catheter #Dementia #Guarded prognosis Plan -Dexamethasone and remdesivir. -Oxygen supplementation. -Add Vancomycin IV per pharmacy. -Continue empiric Cefepime and Azithromycin. -Follow all blood and urine cultures. -D5 1/2 NS KCL IV fluid. -Daily CBC and chemistry panel. -Xopenex inh prn. -Modified home psychotropic medications. -Holding home Seroquel, changes home Valium to prn. -Monitor for benzodiazepine withdrawal. -Delirium bundle. -PT consult -Speech consult. -NPO except meds. -DVT prophylaxis: Lovenox -CODE STATUS: DNR/DNI -Disposition: TBD Time Spent With Patient Time: Total time spent is greater than 50% in coordination of care (as documented) at patient's floor/unit and/or counseling patient: QUALITY VTE Deep Vein Thrombosis/Pulmonary Embolism Present on Admission: No
[2021-10-15] MEDS: DOCUSATE SODIUM 100 MG CAPSULE PO SCH ×2 (15:01→20:47)
[2021-10-15] MEDS: SERTRALINE 100 MG TABLET PO SCH (15:10)
[2021-10-15] MEDS: BUPRENORPHINE HCL 2 MG TAB.SUBL SL SCH ×2 (15:11→21:17)
[2021-10-15] MEDS: LEVALBUTEROL 1.25 MG/3 ML AMPUL.NEB NEB PRN (18:29)
[2021-10-15] MEDS: lamoTRIgine 100 MG TABLET PO SCH (20:47)
[2021-10-16] MEDS: DEXTROSE 5%-1/2NS W/20MEQ KCL 1,000 ML IV SCH ×2 (02:15→14:38)
[2021-10-16] MEDS: 0.9 % SODIUM CHLORIDE 10 ML SYRINGE IV SCH ×3 (05:14→20:40)
[2021-10-16 07:28] LABS: Hematocrit 32.2 % (34.1-44.9); Hemoglobin 9.9 g/dL (11.2-15.7); Mean Cell Volume 83.9 fL (80.0-100.0); Mean Corpuscular HGB Conc 30.7 g/dL (31.0-36.0); Platelet Count 271 K/mcL (140-440); RBC 3.84 M/mcL (3.59-5.38); Red Cell Distribution Width 17.1 % (11.5-14.5); WBC 19.9 K/mcL (4.5-11.0)
[2021-10-16] MEDS: DEXAMETHASONE 10 MG/ML VIAL IV SCH (08:04)
[2021-10-16] MEDS: CEFEPIME 2 GM VIAL IV SCH (08:04)
[2021-10-16] MEDS: ENOXAPARIN 40 MG/0.4 ML SYRINGE SQ SCH (08:05)
[2021-10-16] MEDS: DOCUSATE SODIUM 100 MG CAPSULE PO SCH ×2 (08:06→20:41)
[2021-10-16] MEDS: AZITHROMYCIN 500 MG in DEXTROSE 5% IN WATER 250 ML IV SCH (08:07)
[2021-10-16 08:11] LABS: ALT/SGPT 19 U/L (<40); AST/SGOT 55 U/L (<32); Albumin 2.1 gm/dL (3.2-5.2); Albumin/Globulin Ratio 0.6 (1.0-2.3); Alkaline Phosphatase 132 U/L (39-117); Bilirubin,Direct < 0.2 mg/dL (0-0.3); Bilirubin,Total 0.2 mg/dL (0.1-1.0); Blood Urea Nitrogen 21 mg/dL (8-23); Calcium 7.8 mg/dL (8.6-10.4); Carbon Dioxide 21 mmol/L (22-30); Chloride 110 mmol/L (96-108); Globulin 3.3 gm/dL (2.2-3.7); Glomerular Filtration Rate 92; Glucose 194 mg/dL (70-105); Lactate Dehydrogenase 429 U/L (135-225); Phosphorous 1.5 mg/dL (2.5-4.5); Triglycerides 134 mg/dL (<150); Uric Acid 3.2 mg/dL (2.5-8.0)
[2021-10-16] MEDS: BUPRENORPHINE HCL 2 MG TAB.SUBL SL SCH (08:11)
[2021-10-16] MEDS: SERTRALINE 100 MG TABLET PO SCH (08:11)
[2021-10-16] MEDS ORDERED: SODIUM PHOSPHATE 30 MMOL in DEXTROSE 5% IN WATER 500 ML IV ONE (08:27)
[2021-10-16] MEDS: LEVALBUTEROL 1.25 MG/3 ML AMPUL.NEB NEB PRN (08:27)
[2021-10-16 10:20] LABS: Anisocytosis 1+ (None Seen); Hypochromasia 1+ (None Seen); Lymphocytes % 3 % (15-49); Monocytes % (Manual) 2 % (1-12); Platelet Estimate NORMAL (Normal); RBC Morphology ABNORMAL (Normal); Reactive Lymphocytes 2 % (0-2); Segmented Neutrophils % 93 % (38-78)
[2021-10-16] MEDS: VANCOMYCIN 750 MG in 0.9 % SODIUM CHLORIDE 250 ML IV SCH (11:04)
[2021-10-16] MEDS: REMDESIVIR 100 MG in 0.9 % SODIUM CHLORIDE 250 ML IV SCH (13:32)
[2021-10-16] MEDS ORDERED: ONDANSETRON 4 MG/2 ML VIAL IV PRN (14:29)
[2021-10-16] MEDS ORDERED: ALBUTEROL SULFATE 2.5 MG/3 ML NEBULIZER NEB PRN (14:29)
--- NOTE | 2021-10-16 14:35 | Internal Med Progress Note ---
SUBJECTIVE Subjective Patient information: Note initiated : 10/16/21 at 2:31 pm Service Date, if different from initiated Date: [] Patient: Catherine Rojas 71 y/o F admitted on 10/13/21 for Shortness of breath. Chief Complaint: [] Principal diagnosis: Severe COVID Interval history: Ms. Rojas is a 71 year old female with a history of COPD, chronic hypoxia with a 2 L/min oxygen requirement, suprapubic Franco catheter, dementia who presented to the emergency department for shortness of breath and acute on chronic hypoxia. The patient was diagnosed with Covid pneumonia in the emergency department.She was started on BiPAP with additional oxygen supplementation and given a dose of Decadron IV. The emergency department provider discussed goals of care with family, family decided on a CODE STATUS of DNR/DNI. Hospital medicine was asked to admit the patient for further management. Patient is unable to provide a history secondary to encephalopathy and probably dementia. In the emergency department, the patient to be breathing comfortably on BiPAP. 10/14 Very drowsy this morning, discontinued scheduled home valium, decreased Seroquel dose. High risk for aspiration so made NPO status. D5 IV started for hypernatr emia. WBC trending up, procalcitonin elevated. Urinalysis positive however from suprapubic catheter. Started empiric Cefepime and Azithromycin. Goals of care conversation by phone with the patient's brother and power of promotions intern Klaus. Discussed poor prognosis in the setting of advanced dementia. Will discuss again soon. 10/15 Drowsy this morning again but not as severe as yesterday. Discontinued Seroquel. Hypernatremia resolved. Speech therapy recommendations pending. /2 blood cultures positive for gram positive coccobacillus. Repeated blood cultures, added IV Vancomycin. Transitioned IV fluid to D5 1/2 NS KCL. Overall improved since yesterday. Will await blood cultures results to determine if this is bacteremia or a skin contaminant. Plan to update Klaus later today and discuss goals of care again. 10/16 Discussed goals of care with the patient's brother and power of promotions intern Klaus melendez. Klaus wishes to transition the patient to comfort cares, no antibiotics or medical treatment for COVID. Comfort care orders placed. Physical exam Head: Atraumatic, normal inspection. Eyes: normal appearance, no scleral icterus. Neck: full ROM Respiratory: On BiPAP, respiratory rate in the mid to upper 20s. Cardiovascular: normal rate and rhythm, S1, S2. GI/Abdominal: soft, nontender, no guarding. : Suprapubic catheter present Extremities: full range of motion, nontender. Neurological: CN II-XII intact, intact motor, intact sensation. Psychiatric: normal mood, impaired cognition Skin: warm, normal color Constitutional Vitals: Vital Signs Temp Pulse Resp BP Pulse Ox 98.2 F 73 23 H 145/93 93 10/16/21 12:01 10/16/21 11:09 10/16/21 14:06 10/16/21 14:06 10/16/21 14:06 Period Temp Pulse Resp BP Sys/Galarza Pulse Ox Last 24 Hr 97.7 F-98.9 F 73-92 11-31 85-145/50-112 87-95 Intake and Output 10/16/21 10/16/21 10/16/21 05:59 13:59 21:59 Intake Total 1050 500 Output Total 475 350 Balance 575 150 Intake & Output: Intake & Output 10/16/21 10/16/21 10/16/21 05:59 13:59 21:59 Intake Total 1050 500 Output Total 475 350 Balance 575 150 Intake: IV 1000 500 Zithromax 500 mg In Dextrose 5% 250 in Water 250 ml @ 250 mls/hr IV DAILY [facility] Rx#:[id number] Dextrose 5%-1/2Ns W/20Meq KCl 1 1000 ,000 ml @ 75 mls/hr IV .[id number] [facility] Rx#:[id number] Vancomycin 750 mg In Sodium 250 Chloride 0.9% 250 ml @ 250 mls/ hr IV Q12H [facility] Rx#:[id number] Oral 50 Output: Urine Catheter Amount 475 Void Amount 350 Other: Urine Appearance Clear Suprapubic Cloudy Urine Color Straw Dark Gregoria Suprapubic Straw Urine Odor Normal Normal OBJ DATA Labs CBC & Chem 7: 10/16/21 05:36 10/16/21 05:37 Labs: Abnormal Lab Results 10/16/21 10/16/21 10/15/21 05:37 05:36 12:56 WBC 19.9 H Hgb 9.9 L Hct 32.2 L MCH 25.8 L MCHC 30.7 L RDW 17.1 H MPV 11.0 H Seg Neutrophils % 93 H Lymphocytes % 3 L RBC Morphology Abnormal A Hypochromasia 1+ A Anisocytosis 1+ A Ovalocytes ABG Methemoglobin 0.3 L VBG pH 7.43 H VBG pCO2 38.8 L VBG pO2 87.3 H VBG HCO3 VBG Total CO2 VBG O2 Saturation 92.7 H VBG Base Excess Carboxyhemoglobin 4.5 H Total Hemoglobin 9.5 L Sodium Chloride 110 H Carbon Dioxide 21 L BUN Glucose 194 H Calcium 7.8 L Phosphorus 1.5 L GGT 44 H AST 55 H Alkaline Phosphatase 132 H Lactate Dehydrogenase 429 H C-Reactive Protein Total Protein 5.4 L Albumin 2.1 L Albumin/Globulin Ratio 0.6 L Procalcitonin Urine Appearance Urine Protein Urine Ketones Urine Occult Blood Urine Nitrate Urine Bilirubin Ur Leukocyte Esterase Urine RBC Urine WBC Ur Transition Epith Cell Urine Bacteria Urine Mucus 10/15/21 10/15/21 10/15/21 06:05 06:05 06:05 WBC 14.7 H Hgb 9.8 L Hct 31.2 L MCH MCHC RDW 16.9 H MPV 10.5 H Seg Neutrophils % 89 H Lymphocytes % 1 L RBC Morphology Abnormal A Hypochromasia 1+ A Anisocytosis 1+ A Ovalocytes ABG Methemoglobin VBG pH VBG pCO2 VBG pO2 VBG HCO3 VBG Total CO2 VBG O2 Saturation VBG Base Excess Carboxyhemoglobin Total Hemoglobin Sodium Chloride Carbon Dioxide BUN 25 H Glucose 249 H Calcium 7.8 L Phosphorus 2.0 L GGT 46 H AST 57 H Alkaline Phosphatase Lactate Dehydrogenase 346 H C-Reactive Protein 15.90 H Total Protein 5.1 L Albumin 2.2 L Albumin/Globulin Ratio 0.8 L Procalcitonin Urine Appearance Urine Protein Urine Ketones Urine Occult Blood Urine Nitrate Urine Bilirubin Ur Leukocyte Esterase Urine RBC Urine WBC Ur Transition Epith Cell Urine Bacteria Urine Mucus 10/14/21 10/14/21 10/14/21 12:40 09:16 09:16 WBC Hgb Hct MCH MCHC RDW MPV Seg Neutrophils % Lymphocytes % RBC Morphology Hypochromasia Anisocytosis Ovalocytes ABG Methemoglobin VBG pH VBG pCO2 VBG pO2 VBG HCO3 VBG Total CO2 VBG O2 Saturation VBG Base Excess Carboxyhemoglobin Total Hemoglobin Sodium Chloride Carbon Dioxide BUN Glucose Calcium Phosphorus GGT AST Alkaline Phosphatase Lactate Dehydrogenase C-Reactive Protein 29.70 H Total Protein Albumin Albumin/Globulin Ratio Procalcitonin 1.07 H Urine Appearance Cloudy A Urine Protein >=300 mg/dl A Urine Ketones 40 mg/dl A Urine Occult Blood Large A Urine Nitrate Positive A Urine Bilirubin Small A Ur Leukocyte Esterase Large A Urine RBC > 182 H Urine WBC > 182 H Ur Transition Epith Cell 6 H Urine Bacteria Many A Urine Mucus Few A 10/14/21 10/14/21 10/13/21 05:28 05:27 16:07 WBC 15.7 H Hgb 11.0 L Hct MCH MCHC 30.6 L RDW 17.0 H MPV Seg Neutrophils % Lymphocytes % 4 L RBC Morphology Abnormal A Hypochromasia Anisocytosis 2+ A Ovalocytes Occ A ABG Methemoglobin 0.3 L VBG pH VBG pCO2 VBG pO2 161.4 H VBG HCO3 22.6 L VBG Total CO2 23.9 L VBG O2 Saturation 94.1 H VBG Base Excess -3 L Carboxyhemoglobin 4.7 H Total Hemoglobin 10.5 L Sodium 147 H Chloride 112 H Carbon Dioxide 20 L BUN Glucose 110 H Calcium 7.9 L Phosphorus GGT 58 H AST 62 H Alkaline Phosphatase 140 H Lactate Dehydrogenase 380 H C-Reactive Protein Total Protein 5.7 L Albumin 2.3 L Albumin/Globulin Ratio 0.7 L Procalcitonin Urine Appearance Urine Protein Urine Ketones Urine Occult Blood Urine Nitrate Urine Bilirubin Ur Leukocyte Esterase Urine RBC Urine WBC Ur Transition Epith Cell Urine Bacteria Urine Mucus 10/13/21 09:32 WBC Hgb Hct MCH MCHC RDW MPV Seg Neutrophils % Lymphocytes % RBC Morphology Hypochromasia Anisocytosis Ovalocytes ABG Methemoglobin VBG pH VBG pCO2 VBG pO2 VBG HCO3 VBG Total CO2 VBG O2 Saturation VBG Base Excess Carboxyhemoglobin Total Hemoglobin Sodium Chloride Carbon Dioxide 20 L BUN 24 H Glucose 129 H Calcium 7.2 L Phosphorus GGT 56 H AST 63 H Alkaline Phosphatase 156 H Lactate Dehydrogenase 361 H C-Reactive Protein Total Protein 5.7 L Albumin 2.5 L Albumin/Globulin Ratio 0.8 L Procalcitonin Urine Appearance Urine Protein Urine Ketones Urine Occult Blood Urine Nitrate Urine Bilirubin Ur Leukocyte Esterase Urine RBC Urine WBC Ur Transition Epith Cell Urine Bacteria Urine Mucus Meds: Medications Albuterol Sulfate (Albuterol Sulfate 2.5 Mg/3 Ml Nebulizer) 2.5 mg NEB Q2HP PRN PRN Reason: Shortness Of Breath Buprenorphine HCl (Buprenorphine Hcl 8 Mg Tab.Subl) 8 mg SL BID [facility] Docusate Sodium (Docusate Sodium 100 Mg Capsule) 100 mg PO BID [facility] REMDESIVIR 100 mg/ Sodium (Chloride) 250 mls @ 500 mls/hr IV Q24H [facility] Stop: 10/17/21 12:29 Last Admin: 10/16/21 13:32 Dose: 500 mls/hr Documented by: Lorazepam (Lorazepam 2 Mg/Ml Vial) 0 mg IV Q1HP PRN; Protocol PRN Reason: ANXIETY/SEDATION Morphine Sulfate (Morphine 4 Mg/Ml Vial) 2 - 6 mg IV Q1HP PRN; Protocol PRN Reason: Per Pain Protocol Ondansetron HCl (Ondansetron 4 Mg/2 Ml Vial) 4 mg IV Q4HP PRN; Protocol PRN Reason: Nausea And Vomiting Sodium Chloride (0.9 % Sodium Chloride 10 Ml Syringe) 10 ml IV Q8 [facility] ABG Interpretation ABG results: 10/13/21 10/15/21 16:07 12:56 ABG Methemoglobin 0.3 L 0.3 L VBG pH 7.33 7.43 H VBG pCO2 43.9 38.8 L VBG pO2 161.4 H 87.3 H VBG HCO3 22.6 L 25.2 VBG Total CO2 23.9 L 26.4 VBG O2 Saturation 94.1 H 92.7 H VBG Base Excess -3 L 1 A/P Narrative A/P Narrative: Assessment: 71 year old female with a history of COPD, chronic hypoxia with a 2 L/min oxygen requirement, suprapubic Franco catheter, dementia admitted for acute on chronic hypoxia secondary to severe COVID. After a couple of days of inpatient care with no significant improvement her brother and power of promotions intern instructed that the patient be started on comfort care. #Acute on chronic hypoxic respiratory failure #Severe COVID illness #Possible CAP #Possible UTI (CAUTI) #Gram positive coccobacillus blood culture #Dysphagia #COPD #Essential hypertension #Depression #History of opioid use disorder #Pressure ulcers, present on admission #Suprapubic Franco catheter #Dementia #Guarded prognosis Plan -Comfort cares. -CODE STATUS: DNR/DNI -Disposition: The patient will probably pass away in the hospital. Time Spent With Patient Time: Total time spent is greater than 50% in coordination of care (as documented) at patient's floor/unit and/or counseling patient: QUALITY VTE Deep Vein Thrombosis/Pulmonary Embolism Present on Admission: No
[2021-10-16] MEDS: morphine 4 MG/ML VIAL IV PRN (15:25)
[2021-10-16] MEDS: LORazepam 2 MG/ML VIAL IV PRN (16:22)
[2021-10-16] MEDS: BUPRENORPHINE HCL 8 MG TAB.SUBL SL SCH (20:41)
[2021-10-17] MEDS: 0.9 % SODIUM CHLORIDE 10 ML SYRINGE IV SCH ×3 (05:40→21:02)
[2021-10-17] MEDS: morphine 4 MG/ML VIAL IV PRN ×3 (07:05→18:15)
--- NOTE | 2021-10-17 11:24 | Internal Med Progress Note ---
SUBJECTIVE Subjective Patient information: Note initiated : 10/17/21 at 11:21 am Service Date, if different from initiated Date: [] Patient: Catherine Rojas 71 y/o F admitted on 10/13/21 for Shortness of breath. Chief Complaint: [] Principal diagnosis: Severe COVID Interval history: Ms. Rojas is a 71 year old female with a history of COPD, chronic hypoxia with a 2 L/min oxygen requirement, suprapubic Franco catheter, dementia who presented to the emergency department for shortness of breath and acute on chronic hypoxia . The patient was diagnosed with Covid pneumonia in the emergency department.She was started on BiPAP with additional oxygen supplementation and given a dose of Decadron IV. The emergency department provider discussed goals of care with family, family decided on a CODE STATUS of DNR/DNI. Hospital medicine was asked to admit the patient for further management. Patient is unable to provide a history secondary to encephalopathy and probably dementia. In the emergency department, the patient to be breathing comfortably on BiPAP. 10/14 Very drowsy this morning, discontinued scheduled home valium, decreased Seroquel dose. High risk for aspiration so made NPO status. D5 IV started for hypernat remia. WBC trending up, procalcitonin elevated. Urinalysis positive however from suprapubic catheter. Started empiric Cefepime and Azithromycin. Goals of care conversation by phone with the patient's brother and power of defense attorney Klaus. Discussed poor prognosis in the setting of advanced dementia. Will discuss again soon. 10/15 Drowsy this morning again but not as severe as yesterday. Discontinued Seroquel. Hypernatremia resolved. Speech therapy recommendations pending. 09/06 blood cultures positive for gram positive coccobacillus. Repeated blood cultures, added IV Vancomycin. Transitioned IV fluid to D5 1/2 NS KCL. Overall improved since yesterday. Will await blood cultures results to determine if this is bacteremia or a skin contaminant. Plan to update Klaus later today and discuss goals of care again. 10/16 Discussed goals of care with the patient's brother and power of defense attorney Klaus today. Klaus wishes to transition the patient to comfort cares, no antibiotics or medical treatment for COVID. Comfort care orders placed. 10/17 Appears to be comfortable. Physical exam Head: Atraumatic, normal inspection. Eyes: normal appearance, no scleral icterus. Neck: full ROM Respiratory: supplemental oxygen, respiratory rate in the mid to upper 20s. Cardiovascular: normal rate and rhythm, S1, S2. GI/Abdominal: soft, nontender, no guarding. : Suprapubic catheter present Extremities: full range of motion, nontender. Neurological: CN II-XII intact, intact motor, intact sensation. Psychiatric: normal mood, impaired cognition Skin: warm, normal color Constitutional Vitals: Vital Signs Temp Pulse Resp BP Pulse Ox 99.9 F H 79 24 H 131/78 83 L 10/17/21 06:46 10/17/21 05:59 10/17/21 06:46 10/17/21 06:46 10/17/21 06:46 Period Temp Pulse Resp BP Sys/Galarza Pulse Ox Last 24 Hr 97.3 F-99.9 F 64-100 16-30 108-154/73-112 75-93 Intake and Output 10/16/21 10/17/21 10/17/21 21:59 05:59 13:59 Intake Total 1727 75 Output Total 650 370 125 Balance 1077 -295 -125 Intake & Output: Intake & Output 10/16/21 10/17/21 10/17/21 21:59 05:59 13:59 Intake Total 1727 75 Output Total 650 370 125 Balance 1077 -295 -125 Intake: Nourishment/Supplement quantity 50 (ml) IV 1577 Dextrose 5%-1/2Ns W/20Meq KCl 1 930 ,000 ml @ 75 mls/hr IV .[id number] [facility] Rx#:[id number] Veklury 100 mg In Sodium 250 Chloride 0.9% 250 ml @ 500 mls/ hr IV Q24H [facility] Rx#:[id number] Sodium Phosphate 30 Mmol In 397 Dextrose 5% in Water 500 ml @ 85 mls/hr IV ONCE ONE Rx#: [id number] Oral 100 75 Output: Urine Catheter Amount 650 370 125 Other: Feeding Ability Total Assistance Nourishment/Supplement name yakelin Urine Appearance Clear Clear Cloudy Suprapubic Cloudy Clear Sediment Urine Color Pale Straw Dark Yellow Suprapubic Straw Straw Urine Odor Normal Normal Suprapubic Normal # Bowel Movements 0 OBJ DATA Labs CBC & Chem 7: 10/16/21 05:36 10/16/21 05:37 Labs: Abnormal Lab Results 10/16/21 10/16/21 10/15/21 05:37 05:36 12:56 WBC 19.9 H Hgb 9.9 L Hct 32.2 L MCH 25.8 L MCHC 30.7 L RDW 17.1 H MPV 11.0 H Seg Neutrophils % 93 H Lymphocytes % 3 L RBC Morphology Abnormal A Hypochromasia 1+ A Anisocytosis 1+ A ABG Methemoglobin 0.3 L VBG pH 7.43 H VBG pCO2 38.8 L VBG pO2 87.3 H VBG O2 Saturation 92.7 H Carboxyhemoglobin 4.5 H Total Hemoglobin 9.5 L Chloride 110 H Carbon Dioxide 21 L BUN Glucose 194 H Calcium 7.8 L Phosphorus 1.5 L GGT 44 H AST 55 H Alkaline Phosphatase 132 H Lactate Dehydrogenase 429 H C-Reactive Protein Total Protein 5.4 L Albumin 2.1 L Albumin/Globulin Ratio 0.6 L Urine Appearance Urine Protein Urine Ketones Urine Occult Blood Urine Nitrate Urine Bilirubin Ur Leukocyte Esterase Urine RBC Urine WBC Ur Transition Epith Cell Urine Bacteria Urine Mucus 10/15/21 10/15/21 10/15/21 06:05 06:05 06:05 WBC 14.7 H Hgb 9.8 L Hct 31.2 L MCH MCHC RDW 16.9 H MPV 10.5 H Seg Neutrophils % 89 H Lymphocytes % 1 L RBC Morphology Abnormal A Hypochromasia 1+ A Anisocytosis 1+ A ABG Methemoglobin VBG pH VBG pCO2 VBG pO2 VBG O2 Saturation Carboxyhemoglobin Total Hemoglobin Chloride Carbon Dioxide BUN 25 H Glucose 249 H Calcium 7.8 L Phosphorus 2.0 L GGT 46 H AST 57 H Alkaline Phosphatase Lactate Dehydrogenase 346 H C-Reactive Protein 15.90 H Total Protein 5.1 L Albumin 2.2 L Albumin/Globulin Ratio 0.8 L Urine Appearance Urine Protein Urine Ketones Urine Occult Blood Urine Nitrate Urine Bilirubin Ur Leukocyte Esterase Urine RBC Urine WBC Ur Transition Epith Cell Urine Bacteria Urine Mucus 10/14/21 12:40 WBC Hgb Hct MCH MCHC RDW MPV Seg Neutrophils % Lymphocytes % RBC Morphology Hypochromasia Anisocytosis ABG Methemoglobin VBG pH VBG pCO2 VBG pO2 VBG O2 Saturation Carboxyhemoglobin Total Hemoglobin Chloride Carbon Dioxide BUN Glucose Calcium Phosphorus GGT AST Alkaline Phosphatase Lactate Dehydrogenase C-Reactive Protein Total Protein Albumin Albumin/Globulin Ratio Urine Appearance Cloudy A Urine Protein >=300 mg/dl A Urine Ketones 40 mg/dl A Urine Occult Blood Large A Urine Nitrate Positive A Urine Bilirubin Small A Ur Leukocyte Esterase Large A Urine RBC > 182 H Urine WBC > 182 H Ur Transition Epith Cell 6 H Urine Bacteria Many A Urine Mucus Few A Meds: Medications Albuterol Sulfate (Albuterol Sulfate 2.5 Mg/3 Ml Nebulizer) 2.5 mg NEB Q2HP PRN PRN Reason: Shortness Of Breath Buprenorphine HCl (Buprenorphine Hcl 8 Mg Tab.Subl) 8 mg SL BID [facility] Last Admin: 10/16/21 20:41 Dose: 8 mg Documented by: Docusate Sodium (Docusate Sodium 100 Mg Capsule) 100 mg PO BID [facility] Last Admin: 10/16/21 20:41 Dose: 100 mg Documented by: Lorazepam (Lorazepam 2 Mg/Ml Vial) 0 mg IV Q1HP PRN; Protocol PRN Reason: ANXIETY/SEDATION Last Admin: 10/16/21 16:22 Dose: 1 mg Documented by: Morphine Sulfate (Morphine 4 Mg/Ml Vial) 2 - 6 mg IV Q1HP PRN; Protocol PRN Reason: Per Pain Protocol Last Admin: 10/17/21 09:38 Dose: 4 mg Documented by: Ondansetron HCl (Ondansetron 4 Mg/2 Ml Vial) 4 mg IV Q4HP PRN; Protocol PRN Reason: Nausea And Vomiting Sodium Chloride (0.9 % Sodium Chloride 10 Ml Syringe) 10 ml IV Q8 [facility] Last Admin: 10/17/21 05:40 Dose: 10 ml Documented by: ABG Interpretation ABG results: 10/13/21 10/15/21 16:07 12:56 ABG Methemoglobin 0.3 L 0.3 L VBG pH 7.33 7.43 H VBG pCO2 43.9 38.8 L VBG pO2 161.4 H 87.3 H VBG HCO3 22.6 L 25.2 VBG Total CO2 23.9 L 26.4 VBG O2 Saturation 94.1 H 92.7 H VBG Base Excess -3 L 1 A/P Narrative A/P Narrative: Assessment: 71 year old female with a history of COPD, chronic hypoxia with a 2 L/min oxygen requirement, suprapubic Franco catheter, dementia admitted for acute on chronic hypoxia secondary to severe COVID. After a couple of days of inpatient care with no significant improvement her brother and power of defense attorney instructed that the patient be started on full comfort care. All non-comfort medications discontinued at that time, including antibiotics. #Acute on chronic hypoxic respiratory failure #Severe COVID illness #Possible CAP #Possible UTI (CAUTI) #Gram positive coccobacillus blood culture #Dysphagia #COPD #Essential hypertension #Depression #History of opioid use disorder #Pressure ulcers, present on admission #Suprapubic Franco catheter #Dementia #End of life care Plan -Comfort cares. -CODE STATUS: DNR/DNI -Disposition: Possibly hospice at SNF. Time Spent With Patient Time: Total time spent is greater than 50% in coordination of care (as documented) at patient's floor/unit and/or counseling patient: QUALITY VTE Deep Vein Thrombosis/Pulmonary Embolism Present on Admission: No
[2021-10-17] MEDS: BUPRENORPHINE HCL 8 MG TAB.SUBL SL SCH ×2 (13:10→21:02)
[2021-10-17] MEDS: DOCUSATE SODIUM 100 MG CAPSULE PO SCH ×2 (13:10→20:43)
[2021-10-18] MEDS: 0.9 % SODIUM CHLORIDE 10 ML SYRINGE IV SCH ×4 (03:19→20:28)
[2021-10-18] MEDS: morphine 4 MG/ML VIAL IV PRN ×5 (03:20→23:45)
[2021-10-18] MEDS: BUPRENORPHINE HCL 8 MG TAB.SUBL SL SCH ×2 (08:43→20:22)
[2021-10-18] MEDS: DOCUSATE SODIUM 100 MG CAPSULE PO SCH ×2 (08:43→20:28)
[2021-10-18] MEDS: LORazepam 2 MG/ML VIAL IV PRN ×3 (09:04→23:16)
--- NOTE | 2021-10-18 10:31 | Internal Med Progress Note ---
SUBJECTIVE Subjective Patient information: Note initiated : 10/18/21 at 10:30 am Service Date, if different from initiated Date: [] Patient: Catherine Rojas 71 y/o F admitted on 10/13/21 for Shortness of breath. Chief Complaint: [] Principal diagnosis: Severe COVID Interval history: Ms. Rojas is a 71 year old female with a history of COPD, chronic hypoxia with a 2 L/min oxygen requirement, suprapubic Franco catheter, dementia who presented to the emergency department for shortness of breath and acute on chronic hypoxia . The patient was diagnosed with Covid pneumonia in the emergency department.She was started on BiPAP with additional oxygen supplementation and given a dose of Decadron IV. The emergency department provider discussed goals of care with family, family decided on a CODE STATUS of DNR/DNI. Hospital medicine was asked to admit the patient for further management. Patient is unable to provide a history secondary to encephalopathy and probably dementia. In the emergency department, the patient to be breathing comfortably on BiPAP. 10/14 Very drowsy this morning, discontinued scheduled home valium, decreased Seroquel dose. High risk for aspiration so made NPO status. D5 IV started for hypernat remia. WBC trending up, procalcitonin elevated. Urinalysis positive however from suprapubic catheter. Started empiric Cefepime and Azithromycin. Goals of care conversation by phone with the patient's brother and power of sorter upholstery parts Klaus. Discussed poor prognosis in the setting of advanced dementia. Will discuss again soon. 10/15 Drowsy this morning again but not as severe as yesterday. Discontinued Seroquel. Hypernatremia resolved. Speech therapy recommendations pending. 09/06 blood cultures positive for gram positive coccobacillus. Repeated blood cultures, added IV Vancomycin. Transitioned IV fluid to D5 1/2 NS KCL. Overall improved since yesterday. Will await blood cultures results to determine if this is bacteremia or a skin contaminant. Plan to update Klaus later today and discuss goals of care again. 10/16 Discussed goals of care with the patient's brother and power of sorter upholstery parts Klaus today. Klaus wishes to transition the patient to comfort cares, no antibiotics or medical treatment for COVID. Comfort care orders placed. 10/17 Appears to be comfortable. 10/18 Appears to be comfortable. Physical exam Head: Atraumatic, normal inspection. Eyes: normal appearance, no scleral icterus. Neck: full ROM Respiratory: supplemental oxygen, respiratory rate in the mid to upper 20s. Cardiovascular: normal rate and rhythm, S1, S2. GI/Abdominal: soft, nontender, no guarding. : Suprapubic catheter present Extremities: full range of motion, nontender. Neurological: CN II-XII intact, intact motor, intact sensation. Psychiatric: normal mood, impaired cognition Skin: warm, normal color Constitutional Vitals: Vital Signs Temp Pulse Resp BP Pulse Ox 97.8 F 92 H 22 140/88 83 L 10/18/21 06:55 10/18/21 06:55 10/18/21 06:55 10/18/21 06:55 10/18/21 06:55 Period Temp Pulse Resp BP Sys/Galarza Pulse Ox Last 24 Hr 97.8 F-99.1 F 92-92 20-30 130-148/76-93 79-92 Intake and Output 10/17/21 10/18/21 10/18/21 21:59 05:59 13:59 Intake Total 25 25 Output Total 275 225 Balance -250 -200 Intake & Output: Intake & Output 10/17/21 10/18/21 10/18/21 21:59 05:59 13:59 Intake Total 25 25 Output Total 275 225 Balance -250 -200 Intake: Oral 25 25 Output: Urine Catheter Amount 275 225 Other: Urine Appearance Clear Clear Suprapubic Clear Urine Color Dark Yellow Straw Straw Suprapubic Dark Yellow Urine Odor Normal Normal OBJ DATA Labs CBC & Chem 7: 10/16/21 05:36 10/16/21 05:37 Labs: Abnormal Lab Results 10/16/21 10/16/21 10/15/21 05:37 05:36 12:56 WBC 19.9 H Hgb 9.9 L Hct 32.2 L MCH 25.8 L MCHC 30.7 L RDW 17.1 H MPV 11.0 H Seg Neutrophils % 93 H Lymphocytes % 3 L RBC Morphology Abnormal A Hypochromasia 1+ A Anisocytosis 1+ A ABG Methemoglobin 0.3 L VBG pH 7.43 H VBG pCO2 38.8 L VBG pO2 87.3 H VBG O2 Saturation 92.7 H Carboxyhemoglobin 4.5 H Total Hemoglobin 9.5 L Chloride 110 H Carbon Dioxide 21 L Glucose 194 H Calcium 7.8 L Phosphorus 1.5 L GGT 44 H AST 55 H Alkaline Phosphatase 132 H Lactate Dehydrogenase 429 H Total Protein 5.4 L Albumin 2.1 L Albumin/Globulin Ratio 0.6 L Meds: Medications Albuterol Sulfate (Albuterol Sulfate 2.5 Mg/3 Ml Nebulizer) 2.5 mg NEB Q2HP PRN PRN Reason: Shortness Of Breath Buprenorphine HCl (Buprenorphine Hcl 8 Mg Tab.Subl) 8 mg SL BID [facility] Last Admin: 10/18/21 08:43 Dose: 8 mg Documented by: Docusate Sodium (Docusate Sodium 100 Mg Capsule) 100 mg PO BID [facility] Last Admin: 10/18/21 08:43 Dose: 100 mg Documented by: Lorazepam (Lorazepam 2 Mg/Ml Vial) 0 mg IV Q1HP PRN; Protocol PRN Reason: ANXIETY/SEDATION Last Admin: 10/18/21 09:04 Dose: 1 mg Documented by: Morphine Sulfate (Morphine 4 Mg/Ml Vial) 2 - 6 mg IV Q1HP PRN; Protocol PRN Reason: Per Pain Protocol Last Admin: 10/18/21 03:20 Dose: 2 mg Documented by: Ondansetron HCl (Ondansetron 4 Mg/2 Ml Vial) 4 mg IV Q4HP PRN; Protocol PRN Reason: Nausea And Vomiting Sodium Chloride (0.9 % Sodium Chloride 10 Ml Syringe) 10 ml IV Q8 [facility] Last Admin: 10/18/21 06:04 Dose: 10 ml Documented by: ABG Interpretation ABG results: 10/13/21 10/15/21 16:07 12:56 ABG Methemoglobin 0.3 L 0.3 L VBG pH 7.33 7.43 H VBG pCO2 43.9 38.8 L VBG pO2 161.4 H 87.3 H VBG HCO3 22.6 L 25.2 VBG Total CO2 23.9 L 26.4 VBG O2 Saturation 94.1 H 92.7 H VBG Base Excess -3 L 1 A/P Narrative A/P Narrative: Assessment: 71 year old female with a history of COPD, chronic hypoxia with a 2 L/min oxygen requirement, suprapubic Franco catheter, dementia admitted for acute on chronic hypoxia secondary to severe COVID. After a couple of days of inpatient care with no significant improvement her brother and power of sorter upholstery parts instructed that the patient be started on full comfort care. All non-comfort medications discontinued at that time, including antibiotics. #Acute on chronic hypoxic respiratory failure #Severe COVID illness #Possible CAP #Possible UTI (CAUTI) #Gram positive coccobacillus blood culture #Dysphagia #COPD #Essential hypertension #Depression #History of opioid use disorder #Pressure ulcers, present on admission #Suprapubic Franco catheter #Dementia #End of life care Plan -Comfort cares. -CODE STATUS: DNR/DNI -Disposition: Possibly hospice at SNF. Time Spent With Patient Time: Total time spent is greater than 50% in coordination of care (as documented) at patient's floor/unit and/or counseling patient: QUALITY VTE Deep Vein Thrombosis/Pulmonary Embolism Present on Admission: No
--- NOTE | 2021-10-18 13:13 | Internal Med Progress Note ---
SUBJECTIVE Subjective Patient information: Note initiated : 10/18/21 at 1:12 pm Service Date, if different from initiated Date: [] Patient: Catherine Rojas 71 y/o F admitted on 10/13/21 for Shortness of breath. Chief Complaint: [] Principal diagnosis: Severe COVID Interval history: Ms. Rojas is a 71 year old female with a history of COPD, chronic hypoxia with a 2 L/min oxygen requirement, suprapubic Franco catheter, dementia who presented to the emergency department for shortness of breath and acute on chronic hypoxia. The patient was diagnosed with Covid pneumonia in the emergency department.She was started on BiPAP with additional oxygen supplementation and given a dose of Decadron IV. The emergency department provider discussed goals of care with family, family decided on a CODE STATUS of DNR/DNI. Hospital medicine was asked to admit the patient for further management. Patient is unable to provide a history secondary to encephalopathy and probably dementia. In the emergency department, the patient to be breathing comfortably on BiPAP. 10/14 Very drowsy this morning, discontinued scheduled home valium, decreased Seroquel dose. High risk for aspiration so made NPO status. D5 IV started for hypernatr emia. WBC trending up, procalcitonin elevated. Urinalysis positive however from suprapubic catheter. Started empiric Cefepime and Azithromycin. Goals of care conversation by phone with the patient's brother and power of employee benefits attorney Klaus. Discussed poor prognosis in the setting of advanced dementia. Will discuss again soon. 10/15 Drowsy this morning again but not as severe as yesterday. Discontinued Seroquel. Hypernatremia resolved. Speech therapy recommendations pending. 09/06 blood cultures positive for gram positive coccobacillus. Repeated blood cultures, added IV Vancomycin. Transitioned IV fluid to D5 1/2 NS KCL. Overall improved since yesterday. Will await blood cultures results to determine if this is bacteremia or a skin contaminant. Plan to update Klaus later today and discuss goals of care again. 10/16 Discussed goals of care with the patient's brother and power of employee benefits attorney Klaus melendez. Klaus wishes to transition the patient to comfort cares, no antibiotics or medical treatment for COVID. Comfort care orders placed. 10/17 Appears to be comfortable. 10/18 Appears to be comfortable. Physical exam Head: Atraumatic, normal inspection. Eyes: normal appearance, no scleral icterus. Neck: full ROM Respiratory: supplemental oxygen, respiratory rate in the mid to upper 20s. Cardiovascular: normal rate and rhythm, S1, S2. GI/Abdominal: soft, nontender, no guarding. : Suprapubic catheter present Extremities: full range of motion, nontender. Neurological: CN II-XII intact, intact motor, intact sensation. Psychiatric: normal mood, impaired cognition Skin: warm, normal color Constitutional Vitals: Vital Signs Temp Pulse Resp BP Pulse Ox 97.8 F 92 H 22 140/88 85 L 10/18/21 06:55 10/18/21 06:55 10/18/21 06:55 10/18/21 06:55 10/18/21 08:00 Period Temp Pulse Resp BP Sys/Galarza Pulse Ox Last 24 Hr 97.8 F-99.1 F 92-92 20-30 130-148/76-93 79-92 Intake and Output 10/17/21 10/18/21 10/18/21 21:59 05:59 13:59 Intake Total 25 25 Output Total 275 225 Balance -250 -200 Intake & Output: Intake & Output 10/17/21 10/18/21 10/18/21 21:59 05:59 13:59 Intake Total 25 25 Output Total 275 225 Balance -250 -200 Intake: Oral 25 25 Output: Urine Catheter Amount 275 225 Other: Urine Appearance Clear Clear Clear Suprapubic Clear Urine Color Dark Yellow Straw Light Gregoria Straw Suprapubic Dark Yellow Urine Odor Normal Normal Exam: General: Awake, No acute Distress Eyes/N/T: EOMI, Head/Neck: neck supple, CV: RRR, No murmurs, Pulm: Clear b/l, no wheezing/rhonchi/rales Abd: soft, nontender, +BS x4 Ext: no clubbing/cyanosis/edema Neuro: Alert, no focal deficits, moves all extremities, Skin: warm/dry OBJ DATA Labs CBC & Chem 7: 10/16/21 05:36 10/16/21 05:37 Labs: Abnormal Lab Results 10/16/21 10/16/21 10/15/21 05:37 05:36 12:56 WBC 19.9 H Hgb 9.9 L Hct 32.2 L MCH 25.8 L MCHC 30.7 L RDW 17.1 H MPV 11.0 H Seg Neutrophils % 93 H Lymphocytes % 3 L RBC Morphology Abnormal A Hypochromasia 1+ A Anisocytosis 1+ A ABG Methemoglobin 0.3 L VBG pH 7.43 H VBG pCO2 38.8 L VBG pO2 87.3 H VBG O2 Saturation 92.7 H Carboxyhemoglobin 4.5 H Total Hemoglobin 9.5 L Chloride 110 H Carbon Dioxide 21 L Glucose 194 H Calcium 7.8 L Phosphorus 1.5 L GGT 44 H AST 55 H Alkaline Phosphatase 132 H Lactate Dehydrogenase 429 H Total Protein 5.4 L Albumin 2.1 L Albumin/Globulin Ratio 0.6 L Meds: Medications Albuterol Sulfate (Albuterol Sulfate 2.5 Mg/3 Ml Nebulizer) 2.5 mg NEB Q2HP PRN PRN Reason: Shortness Of Breath Last Admin: 10/18/21 11:13 Dose: 2.5 mg Documented by: Buprenorphine HCl (Buprenorphine Hcl 8 Mg Tab.Subl) 8 mg SL BID [facility] Last Admin: 10/18/21 08:43 Dose: 8 mg Documented by: Docusate Sodium (Docusate Sodium 100 Mg Capsule) 100 mg PO BID [facility] Last Admin: 10/18/21 08:43 Dose: 100 mg Documented by: Lorazepam (Lorazepam 2 Mg/Ml Vial) 0 mg IV Q1HP PRN; Protocol PRN Reason: ANXIETY/SEDATION Last Admin: 10/18/21 09:04 Dose: 1 mg Documented by: Morphine Sulfate (Morphine 4 Mg/Ml Vial) 2 - 6 mg IV Q1HP PRN; Protocol PRN Reason: Per Pain Protocol Last Admin: 10/18/21 11:14 Dose: 4 mg Documented by: Ondansetron HCl (Ondansetron 4 Mg/2 Ml Vial) 4 mg IV Q4HP PRN; Protocol PRN Reason: Nausea And Vomiting Sodium Chloride (0.9 % Sodium Chloride 10 Ml Syringe) 10 ml IV Q8 [facility] Last Admin: 10/18/21 06:04 Dose: 10 ml Documented by: ABG Interpretation ABG results: 10/13/21 10/15/21 16:07 12:56 ABG Methemoglobin 0.3 L 0.3 L VBG pH 7.33 7.43 H VBG pCO2 43.9 38.8 L VBG pO2 161.4 H 87.3 H VBG HCO3 22.6 L 25.2 VBG Total CO2 23.9 L 26.4 VBG O2 Saturation 94.1 H 92.7 H VBG Base Excess -3 L 1 A/P Narrative A/P Narrative: A: #Acute on chronic hypoxic respiratory failure #Severe COVID illness #Possible CAP #Possible UTI (CAUTI) #Gram positive coccobacillus blood culture #Dysphagia #COPD #Essential hypertension #Depression #History of opioid use disorder #Pressure ulcers, present on admission #Suprapubic Franco catheter #Dementia #End of life care Plan -Comfort cares. -CODE STATUS: DNR/DNI -Disposition: Possibly hospice at SNF. Time Spent With Patient Time: Total time spent is greater than 50% in coordination of care (as documented) at patient's floor/unit and/or counseling patient: QUALITY VTE Deep Vein Thrombosis/Pulmonary Embolism Present on Admission: No
[2021-10-19] MEDS: 0.9 % SODIUM CHLORIDE 10 ML SYRINGE IV SCH ×3 (06:06→20:18)
--- NOTE | 2021-10-19 07:58 | Internal Med Progress Note ---
SUBJECTIVE Subjective Patient information: Note initiated : 10/19/21 at 7:58 am Service Date, if different from initiated Date: [] Patient: Catherine Rojas 71 y/o F admitted on 10/13/21 for Shortness of breath. Chief Complaint: [] Principal diagnosis: Severe COVID Interval history: Ms. Rojas is a 71 year old female with a history of COPD, chronic hypoxia with a 2 L/min oxygen requirement, suprapubic Franco catheter, dementia who presented to the emergency department for shortness of breath and acute on chronic hypoxia. The patient was diagnosed with Covid pneumonia in the emergency department.She was started on BiPAP with additional oxygen supplementation and given a dose of Decadron IV. The emergency department provider discussed goals of care with family, family decided on a CODE STATUS of DNR/DNI. Hospital medicine was asked to admit the patient for further management. Patient is unable to provide a history secondary to encephalopathy and probably dementia. In the emergency department, the patient to be breathing comfortably on BiPAP. 10/14 Very drowsy this morning, discontinued scheduled home valium, decreased Seroquel dose. High risk for aspiration so made NPO status. D5 IV started for hypernatr emia. WBC trending up, procalcitonin elevated. Urinalysis positive however from suprapubic catheter. Started empiric Cefepime and Azithromycin. Goals of care conversation by phone with the patient's brother and power of litigation attorney associate Klaus. Discussed poor prognosis in the setting of advanced dementia. Will discuss again soon. 10/15 Drowsy this morning again but not as severe as yesterday. Discontinued Seroquel. Hypernatremia resolved. Speech therapy recommendations pending. 09/06 blood cultures positive for gram positive coccobacillus. Repeated blood cultures, added IV Vancomycin. Transitioned IV fluid to D5 1/2 NS KCL. Overall improved since yesterday. Will await blood cultures results to determine if this is bacteremia or a skin contaminant. Plan to update Klaus later today and discuss goals of care again. 10/16 Discussed goals of care with the patient's brother and power of litigation attorney associate Klaus melendez. Klaus wishes to transition the patient to comfort cares, no antibiotics or medical treatment for COVID. Comfort care orders placed. 10/17 Appears to be comfortable. 10/18 Appears to be comfortable. 10/19 Appearing eminent. Partial opens eyes but nonverbal. Constitutional Vitals: Vital Signs Temp Pulse Resp BP Pulse Ox 98.6 F 96 H 16 133/85 73 L 10/18/21 23:09 10/18/21 23:09 10/18/21 23:09 10/18/21 23:09 10/18/21 23:09 Period Temp Pulse Resp BP Sys/Galarza Pulse Ox Last 24 Hr 98.6 F 96 16 133/85 73-85 Intake and Output 10/18/21 10/19/21 10/19/21 21:59 05:59 13:59 Intake Total 480 Output Total 500 650 375 Balance -20 -650 -375 Weight 51.301 kg Intake & Output: Intake & Output 10/18/21 10/19/21 10/19/21 21:59 05:59 13:59 Intake Total 480 Output Total 500 650 375 Balance -20 -650 -375 Weight 51.301 kg Intake: Oral 480 Output: Urine Catheter Amount 500 375 Other 650 Other: Urine Appearance Clear Urine Color Dark Gregoria Tea Colored Suprapubic Tea Colored Exam: General: Sleeping, No acute Distress Eyes/N/T: Head/Neck: neck supple, CV: RRR, No murmurs, Pulm: Clear b/l, no wheezing/rhonchi/rales Abd: soft, nontender, +BS x4 Ext: no clubbing/cyanosis/edema Neuro: Sleeping but partially opens eyes, nonverbal Skin: warm/dry OBJ DATA Labs CBC & Chem 7: 10/16/21 05:36 10/16/21 05:37 Labs: Abnormal Lab Results 10/16/21 10/16/21 05:37 05:36 Seg Neutrophils % 93 H Lymphocytes % 3 L RBC Morphology Abnormal A Hypochromasia 1+ A Anisocytosis 1+ A Chloride 110 H Carbon Dioxide 21 L Glucose 194 H Calcium 7.8 L Phosphorus 1.5 L GGT 44 H AST 55 H Alkaline Phosphatase 132 H Lactate Dehydrogenase 429 H Total Protein 5.4 L Albumin 2.1 L Albumin/Globulin Ratio 0.6 L Meds: Medications Albuterol Sulfate (Albuterol Sulfate 2.5 Mg/3 Ml Nebulizer) 2.5 mg NEB Q2HP PRN PRN Reason: Shortness Of Breath Last Admin: 10/18/21 11:13 Dose: 2.5 mg Documented by: Buprenorphine HCl (Buprenorphine Hcl 8 Mg Tab.Subl) 8 mg SL BID [facility] Last Admin: 10/18/21 20:22 Dose: 8 mg Documented by: Docusate Sodium (Docusate Sodium 100 Mg Capsule) 100 mg PO BID [facility] Last Admin: 10/18/21 20:28 Dose: Not Given Documented by: Lorazepam (Lorazepam 2 Mg/Ml Vial) 0 mg IV Q1HP PRN; Protocol PRN Reason: ANXIETY/SEDATION Last Admin: 10/18/21 23:16 Dose: 1 mg Documented by: Morphine Sulfate (Morphine 4 Mg/Ml Vial) 2 - 6 mg IV Q1HP PRN; Protocol PRN Reason: Per Pain Protocol Last Admin: 10/18/21 23:45 Dose: 2 mg Documented by: Ondansetron HCl (Ondansetron 4 Mg/2 Ml Vial) 4 mg IV Q4HP PRN; Protocol PRN Reason: Nausea And Vomiting Sodium Chloride (0.9 % Sodium Chloride 10 Ml Syringe) 10 ml IV Q8 [facility] Last Admin: 10/19/21 06:06 Dose: 10 ml Documented by: ABG Interpretation ABG results: 10/13/21 10/15/21 16:07 12:56 ABG Methemoglobin 0.3 L 0.3 L VBG pH 7.33 7.43 H VBG pCO2 43.9 38.8 L VBG pO2 161.4 H 87.3 H VBG HCO3 22.6 L 25.2 VBG Total CO2 23.9 L 26.4 VBG O2 Saturation 94.1 H 92.7 H VBG Base Excess -3 L 1 A/P Narrative A/P Narrative: A: #Acute on chronic hypoxic respiratory failure: #Severe COVID illness #Possible CAP #Possible UTI (CAUTI) #Gram positive coccobacillus blood culture #Dysphagia #COPD #Essential hypertension #Depression #History of opioid use disorder #Pressure ulcers, present on admission #Suprapubic Franco catheter #Dementia #End of life care Plan -Comfort cares. -CODE STATUS: DNR/DNI -Disposition: Possibly hospice at SNF. Time Spent With Patient Time: Total time spent is greater than 50% in coordination of care (as documented) at patient's floor/unit and/or counseling patient: QUALITY VTE Deep Vein Thrombosis/Pulmonary Embolism Present on Admission: No
[2021-10-19] MEDS: BUPRENORPHINE HCL 8 MG TAB.SUBL SL SCH ×2 (08:43→20:09)
[2021-10-19] MEDS: DOCUSATE SODIUM 100 MG CAPSULE PO SCH ×2 (08:44→20:15)
[2021-10-19] MEDS: morphine 4 MG/ML VIAL IV PRN (20:10)
[2021-10-20] MEDS: morphine 4 MG/ML VIAL IV PRN ×3 (02:00→20:06)
[2021-10-20] MEDS: 0.9 % SODIUM CHLORIDE 10 ML SYRINGE IV SCH ×3 (04:56→20:06)
[2021-10-20] MEDS: LORazepam 2 MG/ML VIAL IV PRN ×3 (05:10→22:14)
--- NOTE | 2021-10-20 07:55 | Internal Med Progress Note ---
SUBJECTIVE Subjective Patient information: Note initiated : 10/20/21 at 7:54 am Service Date, if different from initiated Date: [] Patient: Catherine Rojas 71 y/o F admitted on 10/13/21 for Shortness of breath. Chief Complaint: [] Principal diagnosis: Severe COVID Interval history: Ms. Rojas is a 71 year old female with a history of COPD, chronic hypoxia with a 2 L/min oxygen requirement, suprapubic Franco catheter, dementia who presented to the emergency department for shortness of breath and acute on chronic hypoxia. The patient was diagnosed with Covid pneumonia in the emergency department.She was started on BiPAP with additional oxygen supplementation and given a dose of Decadron IV. The emergency department provider discussed goals of care with family, family decided on a CODE STATUS of DNR/DNI. Hospital medicine was asked to admit the patient for further management. Patient is unable to provide a history secondary to encephalopathy and probably dementia. In the emergency department, the patient to be breathing comfortably on BiPAP. 10/14 Very drowsy this morning, discontinued scheduled home valium, decreased Seroquel dose. High risk for aspiration so made NPO status. D5 IV started for hypernatr emia. WBC trending up, procalcitonin elevated. Urinalysis positive however from suprapubic catheter. Started empiric Cefepime and Azithromycin. Goals of care conversation by phone with the patient's brother and power of city attorney Klaus. Discussed poor prognosis in the setting of advanced dementia. Will discuss again soon. 10/15 Drowsy this morning again but not as severe as yesterday. Discontinued Seroquel. Hypernatremia resolved. Speech therapy recommendations pending. 09/06 blood cultures positive for gram positive coccobacillus. Repeated blood cultures, added IV Vancomycin. Transitioned IV fluid to D5 1/2 NS KCL. Overall improved since yesterday. Will await blood cultures results to determine if this is bacteremia or a skin contaminant. Plan to update Klaus later today and discuss goals of care again. 10/16 Discussed goals of care with the patient's brother and power of city attorney Klaus melendez. Klaus wishes to transition the patient to comfort cares, no antibiotics or medical treatment for COVID. Comfort care orders placed. 10/17 Appears to be comfortable. 10/18 Appears to be comfortable. 10/19 Appearing eminent. Partial opens eyes but nonverbal. 10/20 Patient minimally responsive. Constitutional Vitals: Vital Signs Temp Pulse Resp BP Pulse Ox 102.9 F H 109 H 16 143/72 71 L 10/20/21 01:51 10/20/21 01:51 10/20/21 01:51 10/20/21 01:51 10/20/21 01:51 Period Temp Pulse Resp BP Sys/Galarza Pulse Ox Last 24 Hr 102.9 F 109 16 143/72 71 Intake and Output 10/19/21 10/20/21 10/20/21 21:59 05:59 13:59 Intake Total 0 Output Total 300 350 Balance -300 -350 Weight 51.256 kg Intake & Output: Intake & Output 10/19/21 10/20/21 10/20/21 21:59 05:59 13:59 Intake Total 0 Output Total 300 350 Balance -300 -350 Weight 51.256 kg Intake: GI Tube Flush 0 Output: Urine Catheter Amount 300 350 Other: Meal Dinner Percent of Meal Consumed Refused Feeding Ability Total Assistance Urine Appearance Clear Clear Suprapubic Clear Urine Color Dark Gregoria Light Gregoria Suprapubic Dark Yellow Light Gregoria Urine Odor Strong Suprapubic Strong Stool Size Large Moderate Stool Color Brown Brown Stool Consistency Formed Soft # of times incontinent of 3 Bowels Exam: General: No acute Distress Eyes/N/T: Head/Neck: neck supple, CV: RRR, No murmurs, Pulm: Clear b/l, no wheezing/rhonchi/rales Abd: soft, nontender, +BS x4 Ext: no clubbing/cyanosis/edema Neuro: Minimally responsive skin: warm/dry OBJ DATA Labs CBC & Chem 7: 10/16/21 05:36 10/16/21 05:37 Meds: Medications Albuterol Sulfate (Albuterol Sulfate 2.5 Mg/3 Ml Nebulizer) 2.5 mg NEB Q2HP PRN PRN Reason: Shortness Of Breath Last Admin: 10/18/21 11:13 Dose: 2.5 mg Documented by: Buprenorphine HCl (Buprenorphine Hcl 8 Mg Tab.Subl) 8 mg SL BID [facility] Last Admin: 10/19/21 20:09 Dose: 8 mg Documented by: Docusate Sodium (Docusate Sodium 100 Mg Capsule) 100 mg PO BID [facility] Last Admin: 10/19/21 20:15 Dose: Not Given Documented by: Lorazepam (Lorazepam 2 Mg/Ml Vial) 0 mg IV Q1HP PRN; Protocol PRN Reason: ANXIETY/SEDATION Last Admin: 10/20/21 05:10 Dose: 1 mg Documented by: Morphine Sulfate (Morphine 4 Mg/Ml Vial) 2 - 6 mg IV Q1HP PRN; Protocol PRN Reason: Per Pain Protocol Last Admin: 10/20/21 04:54 Dose: 2 mg Documented by: Ondansetron HCl (Ondansetron 4 Mg/2 Ml Vial) 4 mg IV Q4HP PRN; Protocol PRN Reason: Nausea And Vomiting Sodium Chloride (0.9 % Sodium Chloride 10 Ml Syringe) 10 ml IV Q8 [facility] Last Admin: 10/20/21 04:56 Dose: 10 ml Documented by: ABG Interpretation ABG results: 10/13/21 10/15/21 16:07 12:56 ABG Methemoglobin 0.3 L 0.3 L VBG pH 7.33 7.43 H VBG pCO2 43.9 38.8 L VBG pO2 161.4 H 87.3 H VBG HCO3 22.6 L 25.2 VBG Total CO2 23.9 L 26.4 VBG O2 Saturation 94.1 H 92.7 H VBG Base Excess -3 L 1 A/P Narrative A/P Narrative: A: #Acute on chronic hypoxic respiratory failure: #Severe COVID illness #Possible CAP #Possible UTI (CAUTI) #Gram positive coccobacillus blood culture #Dysphagia #COPD #Essential hypertension #Depression #History of opioid use disorder #Pressure ulcers, present on admission #Suprapubic Franco catheter #Dementia #End of life care Plan -Comfort care only Time Spent With Patient Time: Total time spent is greater than 50% in coordination of care (as documented) at patient's floor/unit and/or counseling patient: QUALITY VTE Deep Vein Thrombosis/Pulmonary Embolism Present on Admission: No
[2021-10-20] MEDS: BUPRENORPHINE HCL 8 MG TAB.SUBL SL SCH ×2 (09:11→20:06)
[2021-10-20] MEDS: DOCUSATE SODIUM 100 MG CAPSULE PO SCH ×2 (09:11→21:21)
[2021-10-21] MEDS: morphine 4 MG/ML VIAL IV PRN ×2 (02:55→21:10)
[2021-10-21] MEDS: 0.9 % SODIUM CHLORIDE 10 ML SYRINGE IV SCH ×3 (04:54→21:09)
--- NOTE | 2021-10-21 08:24 | Internal Med Progress Note ---
SUBJECTIVE Subjective Patient information: Note initiated : 10/21/21 at 8:24 am Service Date, if different from initiated Date: [] Patient: Catherine Rojas 71 y/o F admitted on 10/13/21 for Shortness of breath. Chief Complaint: [] Principal diagnosis: Severe COVID Interval history: Ms. Rojas is a 71 year old female with a history of COPD, chronic hypoxia with a 2 L/min oxygen requirement, suprapubic Franco catheter, dementia who presented to the emergency department for shortness of breath and acute on chronic hypoxia. The patient was diagnosed with Covid pneumonia in the emergency department.She was started on BiPAP with additional oxygen supplementation and given a dose of Decadron IV. The emergency department provider discussed goals of care with family, family decided on a CODE STATUS of DNR/DNI. Hospital medicine was asked to admit the patient for further management. Patient is unable to provide a history secondary to encephalopathy and probably dementia. In the emergency department, the patient to be breathing comfortably on BiPAP. 10/14 Very drowsy this morning, discontinued scheduled home valium, decreased Seroquel dose. High risk for aspiration so made NPO status. D5 IV started for hypernatr emia. WBC trending up, procalcitonin elevated. Urinalysis positive however from suprapubic catheter. Started empiric Cefepime and Azithromycin. Goals of care conversation by phone with the patient's brother and power of deputy attorney general Klaus. Discussed poor prognosis in the setting of advanced dementia. Will discuss again soon. 10/15 Drowsy this morning again but not as severe as yesterday. Discontinued Seroquel. Hypernatremia resolved. Speech therapy recommendations pending. 09/06 blood cultures positive for gram positive coccobacillus. Repeated blood cultures, added IV Vancomycin. Transitioned IV fluid to D5 1/2 NS KCL. Overall improved since yesterday. Will await blood cultures results to determine if this is bacteremia or a skin contaminant. Plan to update Klaus later today and discuss goals of care again. 10/16 Discussed goals of care with the patient's brother and power of deputy attorney general Klaus melendez. Klaus wishes to transition the patient to comfort cares, no antibiotics or medical treatment for COVID. Comfort care orders placed. 10/17 Appears to be comfortable. 10/18 Appears to be comfortable. 10/19 Appearing imminent. Partial opens eyes but nonverbal. 10/20 Patient minimally responsive. 10/21 Obtunded. Hypoxic. Appears imminent. Constitutional Vitals: Vital Signs Temp Pulse Resp BP Pulse Ox 100.2 F H 112 H 24 H 135/92 61 L 10/20/21 20:00 10/20/21 20:00 10/20/21 20:00 10/20/21 20:00 10/20/21 20:00 Period Temp Pulse Resp BP Sys/Galarza Pulse Ox Last 24 Hr 99.9 F-100.2 F 107-112 22-24 127-135/79-92 61-74 Intake and Output 10/20/21 10/21/21 10/21/21 21:59 05:59 13:59 Intake Total 50 0 Output Total 300 250 Balance -250 -250 Weight 49.124 kg Intake & Output: Intake & Output 10/20/21 10/21/21 10/21/21 21:59 05:59 13:59 Intake Total 50 0 Output Total 300 250 Balance -250 -250 Weight 49.124 kg Intake: Oral 0 GI Tube Flush 50 Output: Urine Catheter Amount 300 250 Other: Meal Dinner Percent of Meal Consumed few bites Feeding Ability Total Assistance Urine Appearance Clear Clear Suprapubic Clear Urine Color Dark Gregoria Dark Gregoria Suprapubic Dark Gregoria Urine Odor Strong Stool Size Moderate Moderate Stool Color Brown Brown Stool Consistency Soft Dry and Hard Liquid # Bowel Movements 1 # of times incontinent of 1 Bowels Exam: General: No acute Distress Eyes/N/T: Head/Neck: neck supple, CV: RRR, No murmurs, Pulm: Rhonchi b/l, Abd: soft, Ext: no clubbing/cyanosis/edema Neuro: Obtunded skin: warm/dry OBJ DATA Labs CBC & Chem 7: 10/16/21 05:36 10/16/21 05:37 Meds: Medications Albuterol Sulfate (Albuterol Sulfate 2.5 Mg/3 Ml Nebulizer) 2.5 mg NEB Q2HP PRN PRN Reason: Shortness Of Breath Last Admin: 10/18/21 11:13 Dose: 2.5 mg Documented by: Buprenorphine HCl (Buprenorphine Hcl 8 Mg Tab.Subl) 8 mg SL BID [facility] Last Admin: 10/20/21 20:06 Dose: 8 mg Documented by: Docusate Sodium (Docusate Sodium 100 Mg Capsule) 100 mg PO BID [facility] Last Admin: 10/20/21 21:21 Dose: Not Given Documented by: Lorazepam (Lorazepam 2 Mg/Ml Vial) 0 mg IV Q1HP PRN; Protocol PRN Reason: ANXIETY/SEDATION Last Admin: 10/20/21 22:14 Dose: 2 mg Documented by: Morphine Sulfate (Morphine 4 Mg/Ml Vial) 2 - 6 mg IV Q1HP PRN; Protocol PRN Reason: Per Pain Protocol Last Admin: 10/21/21 02:55 Dose: 2 mg Documented by: Ondansetron HCl (Ondansetron 4 Mg/2 Ml Vial) 4 mg IV Q4HP PRN; Protocol PRN Reason: Nausea And Vomiting Sodium Chloride (0.9 % Sodium Chloride 10 Ml Syringe) 10 ml IV Q8 [facility] Last Admin: 10/21/21 04:54 Dose: 10 ml Documented by: ABG Interpretation ABG results: 10/13/21 10/15/21 16:07 12:56 ABG Methemoglobin 0.3 L 0.3 L VBG pH 7.33 7.43 H VBG pCO2 43.9 38.8 L VBG pO2 161.4 H 87.3 H VBG HCO3 22.6 L 25.2 VBG Total CO2 23.9 L 26.4 VBG O2 Saturation 94.1 H 92.7 H VBG Base Excess -3 L 1 A/P Narrative A/P Narrative: A: #Acute on chronic hypoxic respiratory failure: #Severe COVID illness #Possible CAP #Possible UTI (CAUTI) #Gram positive coccobacillus blood culture #Dysphagia #COPD #Essential hypertension #Depression #History of opioid use disorder #Pressure ulcers, present on admission #Suprapubic Franco catheter #Dementia #End of life care Plan -Comfort care only -Appearing imminent Time Spent With Patient Time: Total time spent is greater than 50% in coordination of care (as documented) at patient's floor/unit and/or counseling patient: QUALITY VTE Deep Vein Thrombosis/Pulmonary Embolism Present on Admission: No
[2021-10-21] MEDS: DOCUSATE SODIUM 100 MG CAPSULE PO SCH ×2 (08:55→21:22)
[2021-10-21] MEDS: BUPRENORPHINE HCL 8 MG TAB.SUBL SL SCH (09:05)
[2021-10-21] MEDS: LORazepam 2 MG/ML VIAL IV PRN (21:10)
[2021-10-22] MEDS: 0.9 % SODIUM CHLORIDE 10 ML SYRINGE IV SCH ×3 (05:05→20:52)
--- NOTE | 2021-10-22 07:56 | Internal Med Progress Note ---
SUBJECTIVE Subjective Patient information: Note initiated : 10/22/21 at 7:56 am Service Date, if different from initiated Date: [] Patient: Catherine Roajs 71 y/o F admitted on 10/13/21 for Shortness of breath. Chief Complaint: [] Principal diagnosis: Severe COVID Interval history: Ms. Rojas is a 71 year old female with a history of COPD, chronic hypoxia with a 2 L/min oxygen requirement, suprapubic Franco catheter, dementia who presented to the emergency department for shortness of breath and acute on chronic hypoxia. The patient was diagnosed with Covid pneumonia in the emergency department.She was started on BiPAP with additional oxygen supplementation and given a dose of Decadron IV. The emergency department provider discussed goals of care with family, family decided on a CODE STATUS of DNR/DNI. Hospital medicine was asked to admit the patient for further management. Patient is unable to provide a history secondary to encephalopathy and probably dementia. In the emergency department, the patient to be breathing comfortably on BiPAP. 10/14 Very drowsy this morning, discontinued scheduled home valium, decreased Seroquel dose. High risk for aspiration so made NPO status. D5 IV started for hypernatr emia. WBC trending up, procalcitonin elevated. Urinalysis positive however from suprapubic catheter. Started empiric Cefepime and Azithromycin. Goals of care conversation by phone with the patient's brother and power of [place] attorney Klaus. Discussed poor prognosis in the setting of advanced dementia. Will discuss again soon. 10/15 Drowsy this morning again but not as severe as yesterday. Discontinued Seroquel. Hypernatremia resolved. Speech therapy recommendations pending. 09/06 blood cultures positive for gram positive coccobacillus. Repeated blood cultures, added IV Vancomycin. Transitioned IV fluid to D5 1/2 NS KCL. Overall improved since yesterday. Will await blood cultures results to determine if this is bacteremia or a skin contaminant. Plan to update Klaus later today and discuss goals of care again. 10/16 Discussed goals of care with the patient's brother and power of [place] attorney Klaus melendez. Klaus wishes to transition the patient to comfort cares, no antibiotics or medical treatment for COVID. Comfort care orders placed. 10/17 Appears to be comfortable. 10/18 Appears to be comfortable. 10/19 Appearing imminent. Partial opens eyes but nonverbal. 10/20 Patient minimally responsive. 10/21 Obtunded. Hypoxic. Appears imminent. 10/22 Unresponsive and hypoxic. Constitutional Vitals: Vital Signs Temp Pulse Resp BP Pulse Ox 97.7 F 104 H 16 132/73 71 L 10/21/21 20:00 10/21/21 20:00 10/21/21 20:00 10/21/21 20:00 10/21/21 20:00 Period Temp Pulse Resp BP Sys/Galarza Pulse Ox Last 24 Hr 97.7 F-98.0 F 94-104 15-16 124-132/73-76 55-71 Intake and Output 10/21/21 10/22/21 10/22/21 21:59 05:59 13:59 Output Total 250 650 Balance -250 -650 Weight 48.988 kg Intake & Output: Intake & Output 10/21/21 10/22/21 10/22/21 21:59 05:59 13:59 Output Total 250 650 Balance -250 -650 Weight 48.988 kg Output: Urine Catheter Amount 250 650 Other: Urine Appearance Clear Clear Suprapubic Clear Clear Urine Color Dark Yellow Dark Gregoria Suprapubic Dark Gregoria Dark Gregoria Urine Odor Normal Normal # of times incontinent of 1 Bowels Exam: General: No acute Distress Eyes/N/T: Head/Neck: CV: Tacky but regular, No murmurs, Pulm: Rhonchi b/l, Abd: soft, Ext: no clubbing/cyanosis/edema Neuro: Obtunded skin: OBJ DATA Labs CBC & Chem 7: 10/16/21 05:36 10/16/21 05:37 Meds: Medications Albuterol Sulfate (Albuterol Sulfate 2.5 Mg/3 Ml Nebulizer) 2.5 mg NEB Q2HP PRN PRN Reason: Shortness Of Breath Last Admin: 10/18/21 11:13 Dose: 2.5 mg Documented by: Docusate Sodium (Docusate Sodium 100 Mg Capsule) 100 mg PO BID [facility] Last Admin: 10/21/21 21:22 Dose: Not Given Documented by: Lorazepam (Lorazepam 2 Mg/Ml Vial) 0 mg IV Q1HP PRN; Protocol PRN Reason: ANXIETY/SEDATION Last Admin: 10/21/21 21:10 Dose: 1 mg Documented by: Morphine Sulfate (Morphine 4 Mg/Ml Vial) 2 - 6 mg IV Q1HP PRN; Protocol PRN Reason: Per Pain Protocol Last Admin: 10/21/21 21:10 Dose: 2 mg Documented by: Ondansetron HCl (Ondansetron 4 Mg/2 Ml Vial) 4 mg IV Q4HP PRN; Protocol PRN Reason: Nausea And Vomiting Sodium Chloride (0.9 % Sodium Chloride 10 Ml Syringe) 10 ml IV Q8 [facility] Last Admin: 10/22/21 05:05 Dose: Not Given Documented by: ABG Interpretation ABG results: 10/13/21 10/15/21 16:07 12:56 ABG Methemoglobin 0.3 L 0.3 L VBG pH 7.33 7.43 H VBG pCO2 43.9 38.8 L VBG pO2 161.4 H 87.3 H VBG HCO3 22.6 L 25.2 VBG Total CO2 23.9 L 26.4 VBG O2 Saturation 94.1 H 92.7 H VBG Base Excess -3 L 1 A/P Narrative A/P Narrative: A: #Acute on chronic hypoxic respiratory failure: #Severe COVID illness #Possible CAP #Possible UTI (CAUTI) #Gram positive coccobacillus blood culture #Dysphagia #COPD #Essential hypertension #Depression #History of opioid use disorder #Pressure ulcers, present on admission #Suprapubic Franco catheter #Dementia #End of life care Plan -Comfort care only -Appearing imminent Time Spent With Patient Time: Total time spent is greater than 50% in coordination of care (as documented) at patient's floor/unit and/or counseling patient: QUALITY VTE Deep Vein Thrombosis/Pulmonary Embolism Present on Admission: No
[2021-10-22] MEDS: LORazepam 2 MG/ML VIAL IV PRN ×3 (08:17→20:52)
[2021-10-22] MEDS: morphine 4 MG/ML VIAL IV PRN ×2 (10:51→17:20)
[2021-10-22] MEDS: DOCUSATE SODIUM 100 MG CAPSULE PO SCH ×2 (10:56→20:52)
--- NOTE | 2021-10-22 12:36 | Internal Med Progress Note ---
SUBJECTIVE Subjective Patient information: Note initiated : 10/22/21 at 12:35 pm Service Date, if different from initiated Date: [] Patient: Catherine Rojas 71 y/o F admitted on 10/13/21 for Shortness of breath. Chief Complaint: [] Principal diagnosis: Severe COVID Interval history: Ms. Rojas is a 71 year old female with a history of COPD, chronic hypoxia with a 2 L/min oxygen requirement, suprapubic Franco catheter, dementia who presented to the emergency department for shortness of breath and acute on chronic hypoxia . The patient was diagnosed with Covid pneumonia in the emergency department.She was started on BiPAP with additional oxygen supplementation and given a dose of Decadron IV. The emergency department provider discussed goals of care with family, family decided on a CODE STATUS of DNR/DNI. Hospital medicine was asked to admit the patient for further management. Patient is unable to provide a history secondary to encephalopathy and probably dementia. In the emergency department, the patient to be breathing comfortably on BiPAP. 10/14 Very drowsy this morning, discontinued scheduled home valium, decreased Seroquel dose. High risk for aspiration so made NPO status. D5 IV started for hypernat remia. WBC trending up, procalcitonin elevated. Urinalysis positive however from suprapubic catheter. Started empiric Cefepime and Azithromycin. Goals of care conversation by phone with the patient's brother and power of prosecuting attorney Klaus. Discussed poor prognosis in the setting of advanced dementia. Will discuss again soon. 10/15 Drowsy this morning again but not as severe as yesterday. Discontinued Seroquel. Hypernatremia resolved. Speech therapy recommendations pending. 09/06 blood cultures positive for gram positive coccobacillus. Repeated blood cultures, added IV Vancomycin. Transitioned IV fluid to D5 1/2 NS KCL. Overall improved since yesterday. Will await blood cultures results to determine if this is bacteremia or a skin contaminant. Plan to update Klaus later today and discuss goals of care again. 10/16 Discussed goals of care with the patient's brother and power of prosecuting attorney Klaus today. Klaus wishes to transition the patient to comfort cares, no antibiotics or medical treatment for COVID. Comfort care orders placed. 10/17 Appears to be comfortable. 10/18 Appears to be comfortable. 10/19 Appearing imminent. Partial opens eyes but nonverbal. 10/20 Patient minimally responsive. 10/21 Obtunded. Hypoxic. Appears imminent. 10/22 Unresponsive and hypoxic. 10/23 Appears imminent. Physical exam Head: Atraumatic, normal inspection. Neck: full ROM Respiratory: respiratory rate in the 20s, labored breathing Cardiovascular: tachycardia GI/Abdominal: soft, nontender, no guarding. Extremities: full range of motion, nontender. Skin: warm, normal color Constitutional Vitals: Vital Signs Temp Pulse Resp BP Pulse Ox 97.7 F 104 H 16 132/73 71 L 10/21/21 20:00 10/21/21 20:00 10/21/21 20:00 10/21/21 20:00 10/21/21 20:00 Period Temp Pulse Resp BP Sys/Galarza Pulse Ox Last 24 Hr 97.7 F 104 16 132/73 71 Intake and Output 10/21/21 10/22/21 10/22/21 21:59 05:59 13:59 Output Total 250 650 Balance -250 -650 Weight 48.988 kg Intake & Output: Intake & Output 10/21/21 10/22/21 10/22/21 21:59 05:59 13:59 Output Total 250 650 Balance -250 -650 Weight 48.988 kg Output: Urine Catheter Amount 250 650 Other: Urine Appearance Clear Clear Suprapubic Clear Clear Urine Color Dark Yellow Dark Gregoria Suprapubic Dark Gregoria Dark Gregoria Urine Odor Normal Normal # of times incontinent of 1 Bowels OBJ DATA Labs CBC & Chem 7: 10/16/21 05:36 10/16/21 05:37 Meds: Medications Albuterol Sulfate (Albuterol Sulfate 2.5 Mg/3 Ml Nebulizer) 2.5 mg NEB Q2HP PRN PRN Reason: Shortness Of Breath Last Admin: 10/18/21 11:13 Dose: 2.5 mg Documented by: Docusate Sodium (Docusate Sodium 100 Mg Capsule) 100 mg PO BID [facility] Last Admin: 10/22/21 10:56 Dose: Not Given Documented by: Lorazepam (Lorazepam 2 Mg/Ml Vial) 0 mg IV Q1HP PRN; Protocol PRN Reason: ANXIETY/SEDATION Last Admin: 10/22/21 08:17 Dose: 1 mg Documented by: Morphine Sulfate (Morphine 4 Mg/Ml Vial) 2 - 6 mg IV Q1HP PRN; Protocol PRN Reason: Per Pain Protocol Last Admin: 10/22/21 10:51 Dose: 2 mg Documented by: Ondansetron HCl (Ondansetron 4 Mg/2 Ml Vial) 4 mg IV Q4HP PRN; Protocol PRN Reason: Nausea And Vomiting Sodium Chloride (0.9 % Sodium Chloride 10 Ml Syringe) 10 ml IV Q8 [facility] Last Admin: 10/22/21 05:05 Dose: Not Given Documented by: ABG Interpretation ABG results: 10/13/21 10/15/21 16:07 12:56 ABG Methemoglobin 0.3 L 0.3 L VBG pH 7.33 7.43 H VBG pCO2 43.9 38.8 L VBG pO2 161.4 H 87.3 H VBG HCO3 22.6 L 25.2 VBG Total CO2 23.9 L 26.4 VBG O2 Saturation 94.1 H 92.7 H VBG Base Excess -3 L 1 A/P Narrative A/P Narrative: A: #Acute on chronic hypoxic respiratory failure: #Severe COVID illness #Possible CAP #Possible UTI (CAUTI) #Gram positive coccobacillus blood culture #Dysphagia #COPD #Essential hypertension #Depression #History of opioid use disorder #Pressure ulcers, present on admission #Suprapubic Franco catheter #Dementia #End of life care Plan -Comfort care only -Appearing imminent Time Spent With Patient Time: Total time spent is greater than 50% in coordination of care (as documented) at patient's floor/unit and/or counseling patient: QUALITY VTE Deep Vein Thrombosis/Pulmonary Embolism Present on Admission: No
[2021-10-23] MEDS: morphine 4 MG/ML VIAL IV PRN ×4 (02:50→23:04)
[2021-10-23] MEDS: 0.9 % SODIUM CHLORIDE 10 ML SYRINGE IV SCH ×2 (05:59→13:18)
[2021-10-23] MEDS: DOCUSATE SODIUM 100 MG CAPSULE PO SCH ×2 (09:11→20:55)
[2021-10-23] MEDS: LORazepam 2 MG/ML VIAL IV PRN (23:50)
[2021-10-24] MEDS: 0.9 % SODIUM CHLORIDE 10 ML SYRINGE IV SCH ×2 (01:27→05:37)
[2021-10-24] MEDS: morphine 4 MG/ML VIAL IV PRN ×2 (01:48→05:37)
[2021-10-24] MEDS: LORazepam 2 MG/ML VIAL IV PRN (02:33)
--- NOTE | 2021-10-24 07:56 | Death Note ---
Discharge Sum: Prov Provider Patient information: Note initiated : 10/24/21 at 7:55 am Service Date, if different from initiated Date: [] Patient: Catherine Rojas 71 y/o F admitted on 10/13/21 for Shortness of breath. Chief Complaint: [] Primary care physician: Antonia Velazquez Consults: 10/13/21 Consult to Physician [CONS] Stat Comment: Consulting Provider: Liban Deleon Reason For Exam: Physician to Consult Discharge Sum: Summary Date and Time Date of admission: 10/13/21 14:00 Date of : 10/24/21 Time of : 06:00 Summary Details: Ms. Rojas is a 71 year old female with a history of COPD, chronic hypoxia with a 2 L/min oxygen requirement, suprapubic Franco catheter, dementia who presented to the emergency department for shortness of breath and acute on chronic hypoxia. The patient was diagnosed with Covid pneumonia in the emergency department.She was started on BiPAP with additional oxygen supplementation and given a dose of Decadron IV. The emergency department provider discussed goals of care with family, family decided on a CODE STATUS of DNR/DNI. Hospital medicine was asked to admit the patient for further management. Patient is unable to provide a history secondary to encephalopathy and probably dementia. In the emergency department, the patient to be breathing comfortably on BiPAP. 2/ Very drowsy this morning, discontinued scheduled home valium, decreased Seroquel dose. High risk for aspiration so made NPO status. D5 IV started for hypernatremia. WBC trending up, procalcitonin elevated. Urinalysis positive however from suprapubic catheter. Started empiric Cefepime and Azithromycin. Goals of care conversation by phone with the patient's brother and power of defense attorney Klaus. Discussed poor prognosis in the setting of advanced dementia. Will discuss again soon. 10/15 Drowsy this morning again but not as severe as yesterday. Discontinued Seroquel. Hypernatremia resolved. Speech therapy recommendations pending. 1/2 blood cultures positive for gram positive coccobacillus. Repeated blood cultures, added IV Vancomycin. Transitioned IV fluid to D5 1/2 NS KCL. Overall improved since yesterday. Will await blood cultures results to determine if this is bacteremia or a skin contaminant. Plan to update Klaus later today and discuss goals of care again. 10/16 Discussed goals of care with the patient's brother and power of defense attorney Klaus today. Klaus wishes to transition the patient to comfort cares, no antibiotics or medical treatment for COVID. Comfort care orders placed. 10/17 Appears to be comfortable. 10/18 Appears to be comfortable. 10/19 Appearing imminent. Partial opens eyes but nonverbal. 10/20 Patient minimally responsive. 10/21 Obtunded. Hypoxic. Appears imminent. 10/22 Unresponsive and hypoxic. 10/23 Appears imminent. 10/24 The patient on 10/24/21 at 6:00 AM. Additional Data Attending physician: Liban Deleon MD
== END 2021-10-24 06:00 | disposition expired | DRG 177 ==
LOC: ED 09:24 → ICU 14:00 → MEDSUR 10-18 22:52
PROVIDERS: ADMIT Internal Medicine; ATTEND Internal Medicine